=== PATIENT | female | born 1980 | race Caucasian/White ===

== ENCOUNTER 2018-01-15 12:32 | Emergency (ER) | payer OTHER ==
[2018-01-15 12:40] VITALS: BP 106/63
--- OUTSIDE RECORDS SUMMARY | 2018-01-15 12:40 | XMS REPORT ---
:1980 External Reference #:[id number] Author Organization [facility] Address [address] [place] [address] Phone [phone] Care Team Providers Name Role Phone ZoranSaranya SHIP'S CAPTAIN Primary Care Physician Unavailable Payers Type Date Identification Numbers Payment Provider Subscriber Commercial Effective: Policy Number: [id number] Cookartie Em Elisabeth Lila 2012 Healthcare-Man Med Expires: 2016 Group Name: [facility] [employer] PayID: [id number] [place] [address] Medigap Part B Effective: Policy Number: Sony BCSEYMOUR Barber 2016 [id number] Lila Expires: 2017 Group Name: [employer] [address] [address] PayID: [id number] [address] [place] [address] Medigap Part B Effective: Policy Number: Medicaid/Computer Silviano Barber 2017 [id number] Science Lila Expires: 2017 Group Name: 1 [address] PayID: [id number] [place] [address] Commercial Effective: Policy Number: [facility] Silviano Barber 2017 [id number] Med Lila Expires: 2017 PayID: [id number] [facility] [place] [address] Commercial Effective: Policy Number: [facility] Silviano Barber 2017 [id number] Medicaid Lila PayID: [id number] [address] [place] [address] Advance Directives Type Date Description Status Comment Other Directive 05/15/2014 Health Care Proxy Current and Verified Problems Date Description Provider Status Onset: 09/12/2017 Chronic back pain Saranya Meehan, HR PAYROLL COORDINATOR-C Active Onset: 01/07/2012 Alcohol dependence Sugey Christy M.D. Resolved Resolved: 09/12/2017 Onset: 01/07/2012 Insomnia Sugey Christy M.D. Resolved Resolved: 09/12/2017 Onset: 01/07/2012 Depressive disorder Sugey Christy M.D. Resolved Resolved: 09/12/2017 Family History Date Family Member(s) Problem(s) Comments Father Healthy Mother Depression Mother Irritable Bowel Syndrome Mother Cancer, Cervical Maternal Grandfather Alcoholism Social History Type Date Description Comments Marital Status Single Home Environment [place] Work Status Currently Working [employer] Cigarette Use Former Cigarette Smoker ETOH Use Denies alcohol use Recreational Drug Use Former Drug User Smoking Patient is a former smoker Daily Caffeine Does Not Consume Caffeine Exercise Type/Frequency Walks 4 times a week Allergies, Adverse Reactions, Alerts Date Description Reaction Status Severity Comments 01/09/2016 Morphine active dizziness 01/07/2012 NKDA inactive Medications Medication Date Status Form Strength Qnty SIG Indications Ordering Provider Zonisamide 01/06 Active Capsules 100mg 60cap 2 by G89.4 wnti R. s mouth Storm, before HR PAYROLL COORDINATOR-C bed Trazodone HCL 01/06 Active Tablets 100mg 60tab 2 by G47.00 nti R. s mouth Storm, every HR PAYROLL COORDINATOR-C night at bedtime for sleep Oxycodone HCL 01/06 Active Tablets 30mg 150ta 1 by G89.4 nt R. bs mouth Storm, every 4 HR PAYROLL COORDINATOR-C hours for pain, MDD 6 Lidocaine-Priloca 11/28 Active Cream 2.5-2.5% 25gm apply pea K64.9 Shawnti R. ine sized Storm, area 3 to HR PAYROLL COORDINATOR-C 4 times daily for pain Proctozone-HC 11/28 Active Cream 2.5% 30gm apply to K64.9 Shawnti R. /2017 hemorrhoi Storm, ds 3 - 4 HR PAYROLL COORDINATOR-C times daily if needed Oxycodone HCL ER 11/11 Active Tab ER 12H 20mg 30tab 1 by Saranya R. Abuse-Det s mouth Storm, before HR PAYROLL COORDINATOR-C bed for chronic pain Prednisone 11/10 Active Tablets 20mg 13tab 3 by S46.811A Danishai R s mouth Storm, every day HR PAYROLL COORDINATOR-C x 2days, 2 by mouth every day x 2 days, 1 by mouth every day x 2 days, 1/2 by mouth every day x 2 days Wellbutrin SR 11/10 Active Tablets ER 150mg 60tab take one R53.83 christianoi R 12HR s tablet by , mouth HR PAYROLL COORDINATOR-C twice a day Nicotine 09/20 Active Patches 14mg/24HR 28uni 1 patch christianoi R 24HR ts every , day, HR PAYROLL COORDINATOR-C remove after 24 hours an replace with a new patch, rotate sites Apri 09/14 Active Tablets 0.15-30mg 168ta 1 by Z30.9 Danishai R -mcg bs mouth , every HR PAYROLL COORDINATOR-C day, skip placebo pills and start a new pack Gentamicin 01/06 Active Solution 0.3% 5ml 2 drops H00.015 Saranya RPalomo in [facility], affected HR PAYROLL COORDINATOR-C eye four times a day for one week Zofran Odt 11/01 Active Tablets 4mg 30tab dissolve G89.4 Danishai R Dispers s one tab , in mouth HR PAYROLL COORDINATOR-C every 6-8 hours as needed nausea Thiamine HCL 09/09 Active Tablets 100mg 30tab Take One G90.09 Saranya R. s Tablet By , Mouth HR PAYROLL COORDINATOR-C Every Day Docusate Sodium 07/23 Active Capsules 100mg Joaquim HR PAYROLL COORDINATOR-C Folic Acid 07/23 Active Tablets 1mg 90tab 1 by Saranya Padilla. s mouth , daily HR PAYROLL COORDINATOR-C Multivitamins 25 Active Capsules Joaquim HR PAYROLL COORDINATOR-C 3ML Luer-Omar Tip 05/03 Active Misc 24G X 1" 30uni Use as Sugey Syringe 24G X 1" 3 ML ts directed Roxanna Christy, once per M.D. month to inject Vitamin B12 Cyanocobalamin 05/03 Active Solution 1000mcg/M 4unit inject Saranya Interiano L s one Storm, millilite HR PAYROLL COORDINATOR-C rs (cc) intramusc ularly once a week as directed Tizanidine HCL Active Tablets 2mg take 1 Unknown 0000 tablet by mouth three times a day Oxycodone HCL ER 11/10 Hx Tab ER 12H 40mg 60tab 1 by Saranya R. Abuse-Det s mouth Storm, - twice HR PAYROLL COORDINATOR-C 11/11 daily for chronic pain Oxycodone HCL 11/07 Hx Tablets 30mg 150ta 1 by GFidelina.Mando Beaver R. bs mouth Storm, - every 4 HR PAYROLL COORDINATOR-C 01/06 hours needed for breakthro ugh pain, mdd 6 Oxycodone HCL ER 10/27 Hx Tab ER 12H 30mg 60tab one by Saranya Interiano Abuse-Det s mouth Storm, - twice HR PAYROLL COORDINATOR-C 11/10 daily for chronic pain Oxycodone HCL 10/27 Hx Tablets 20mg 30tab 1/2 to 1 G89.4 Danishai R. s by mouth Storm, - every 6 HR PAYROLL COORDINATOR-C 11/07 hours needed for breakthro ugh pain Oxycodone HCL 10/07 Hx Tablets 30mg 90tab 1 by G89.4 Hubertnti R. s mouth Storm, - every 4 HR PAYROLL COORDINATOR-C 10/27 hours for chronic pain Trazodone HCL 10/07 Hx Tablets 50mg 60tab take 1 or G47.00 Saranya R. s 2 tablet Storm, - by mouth HR PAYROLL COORDINATOR-C 01/06 at bedtime if needed for sleep Zonisamide 09/26 Hx Capsules 100mg 30cap 1 by G89.4 Danishai R. s mouth Storm, - before HR PAYROLL COORDINATOR-C 01/06 Oxycodone HCL 09/26 Hx Tablets 20mg 90tab 1 by G89.4 Hubertntmartine R. s mouth Storm, - every 4 HR PAYROLL COORDINATOR-C 10/07 hours for pain Nortriptyline HCL 09/12 Hx Capsules 25mg 30cap 1 by G90.09 Ahsanwnti R. s mouth Storm, - every HR PAYROLL COORDINATOR-C 09/26 night at bedtime for neuropath ic pain Clindamycin 07/11 Hx Cream 2% 40gm one N76.0 Danishai R. applicato Storm, - r full HR PAYROLL COORDINATOR-C 07/21 into vaginal before bed for one week Nicotine 10/20 Hx Patches 14mg/24HR 21uni apply one Ahsanwnti R. 24HR ts patch Storm, - daily for HR PAYROLL COORDINATOR-C 07/11 3 weeks then decrease to 7mg patch Nicotine 10/20 Hx Patches 7mg/24HR 28uni apply one Ahsanwnti R. 24HR ts patch Storm, - daily HR PAYROLL COORDINATOR-C 09/20 Oxycodone HCL 04/14 Hx Tablets 30mg 180ta 1 by G89.4 Danishai R. bs mouth Storm, - every 4 HR PAYROLL COORDINATOR-C 09/26 hours needed for breakthro ugh pain, mdd 6 Oxycodone HCL ER 03/04 Hx Tab ER 12H 40mg 60tab 1 by G89.4 Hubertnti R. Abuse-Det s mouth Storm, - twice HR PAYROLL COORDINATOR-C 09/12 daily for chronic pain Oxycodone HCL 02/25 Hx Tablets 20mg 126ta 2 by G89.4 Hubertnti R. bs mouth Storm, - every 4 HR PAYROLL COORDINATOR-C 04/14 hours needed for pain Levaquin 11/01 Hx Tablets 750mg 7tabs 1 by J18.9 Ahsanwnadiai R. mouth Storm, - daily for HR PAYROLL COORDINATOR-C 11/11 7 days for pneumonia Oxycodone HCL ER 11/01 Hx Tab ER 12H 60mg 30tab 1 by G89.4 Danishai R. Abuse-Det s mouth Storm, - every HR PAYROLL COORDINATOR-C 02/25 for chronic pain Fluconazole 10/07 Hx Tablets 150mg 2tabs 1 by Saranya R. mouth Storm, - now, december HR PAYROLL COORDINATOR-C 07/11 repeat in 1 week if sx still present Doxycycline 10/07 Hx Capsules 100mg 20cap 1 by Saranya Interiano Hyclate /2016 s mouth Storm, - twice a HR PAYROLL COORDINATOR-C 11/01 day for 10 days Azithromycin 10/01 Hx Tablets 250mg 6tabs 2 by J18.9 Saranya Interiano mouth Storm, - today HR PAYROLL COORDINATOR-C 10/07 then 1 by mouth daily for 4 days Oxycodone HCL 10/01 Hx Tablets 10mg 100ta 1 or 2 po Saranya Interiano bs up to 6 Storm, - times HR PAYROLL COORDINATOR-C 10/11 daily for breakthro ugh pain Oxycodone HCL 09/10 Hx Tablets 20mg 180ta 1 by G89.4 Saranya Interiano bs mouth up Storm, - to 8 HR PAYROLL COORDINATOR-C 02/25 daily if needed for pain Oxycontin 08/26 Hx Tab ER 12H 80mg 30tab 1 by G90.09 Saranya Interiano Abuse-Det s mouth Storm, - before HR PAYROLL COORDINATOR-C 02/25 Oxycodone HCL 08/26 Hx Tablets 10mg 90tab 1 or 2 by G89.4 Saranya Interiano s mouth Storm, - q4hr as HR PAYROLL COORDINATOR-C 09/10 needed breakthro ugh pain Oxycontin 08/16 Hx Tab ER 12H 60mg 14tab 1 by G90.09 Saranya Interiano Abuse-Det s mouth Storm, - twice a HR PAYROLL COORDINATOR-C 08/26 day pain Oxycodone HCL 07/08 Hx Tablets 20mg 180ta 1 by Saranya Interiano bs mouth up Storm, - to 6 HR PAYROLL COORDINATOR-C 08/16 daily for chronic pain Oxycodone HCL 06/28 Hx Tablets 20mg 42tab 1 by Saranya Interiano s mouth up Storm, - to 6 HR PAYROLL COORDINATOR-C 07/05 daily if needed for pain Oxycodone HCL 06/21 Hx Tablets 20mg 42tab 1 by Saranya Interiano s mouth up Storm, - to 6 HR PAYROLL COORDINATOR-C 06/28 daily if needed for pain Fluconazole 06/17 Hx Tablets 150mg 2tabs 1 by Saranya Interiano mouth Storm, - now, december HR PAYROLL COORDINATOR-C 10/07 repeat 1 week if sx still present Oxycodone HCL 06/17 Hx Tablets 20mg 24tab 1 by Saranya R. s mouth up Storm, - to 6 HR PAYROLL COORDINATOR-C 06/21 daily if needed for pain Oxycodone HCL ER 06/15 Hx Tab ER 12H 20mg 28tab 1 by Saranya R. Abuse-Det s mouth Storm, - twice a HR PAYROLL COORDINATOR-C 07/08 day for chronic pain Oxycodone HCL 06/15 Hx Tablets 5mg 30tab 1 or 2 by G90. Saranya R. s mouth Storm, - three HR PAYROLL COORDINATOR-C 07/08 times a day as needed breakthro ugh pain Azithromycin 06/15 Hx Tablets 250mg 6tabs 2 by J18.9 Saranya R. mouth Storm, - today HR PAYROLL COORDINATOR-C 06/25 then 1 by mouth daily for 4 days Ondansetron 04/05 Hx Tablets 4mg 12tab dissolve christiano R. Dispers s 1 tablet Storm, - in mouth HR PAYROLL COORDINATOR-C 07/11 times a day as needed for nausea Duloxetine HCL 03/[address] 60mg 30cap 1 by G90.09 Sathish Part s mouth Nik - daily for III, HR PAYROLL COORDINATOR-C 04/02 ic pain Fluconazole 02/02 Hx Tablets 150mg 2tabs 1 by Saranya R. mouth Storm, - now, december HR PAYROLL COORDINATOR-C 06/17 repeat 1 week if sx still present Oxycodone HCL 02/01 Hx Tablets 20mg 180ta 1 by G90.09 Saranya R. bs mouth up Storm, - to 6 HR PAYROLL COORDINATOR-C 06/15 daily if needed for pain Oxycodone HCL 01/29 Hx Tablets 10mg 180ta 1 tablet G90. Hubertnti R. bs every 4 Storm, - hours if HR PAYROLL COORDINATOR-C 02/01 needed for pain Oxycodone HCL 01/08 Hx Tablets 10mg 180ta 1 tablet G90.09 Shawnti R. bs every 4 Storm, - hours if HR PAYROLL COORDINATOR-C 01/29 needed for pain Morphine Sulfate 01/04 Hx Tablets ER 30mg 30tab 1 po bid G90. Shawnti R. ER s for Storm, - chronic HR PAYROLL COORDINATOR-C 01/08 pain Apri 01/04 Hx Tablets 0.15-30mg 168ta 1 by Z30.9 Ahsanwnti R. -mcg bs mouth Storm, - every day HR PAYROLL COORDINATOR-C 07/11 Morphine Sulfate 12/28 Hx Tablets ER 15mg 30tab 1 po bid Shawnti R. ER s for Storm, - chronic HR PAYROLL COORDINATOR-C 01/04 pain Gabapentin 12/28 Hx Tablets 600mg 2 po tid G90. Ahsanwnti R. Storm, - HR PAYROLL COORDINATOR-C 04/02 Oxycontin 12/22 Hx Tab ER 12H 10mg 60tab 1 by G90. Ahsanwnti R. Abuse-Det s mouth Storm, - twice a HR PAYROLL COORDINATOR-C 01/04 day for chronic pain Nortriptyline HCL 12/22 Hx Capsules 50mg 180ca 2 by G47.00 wnti R. ps mouth Storm, - every HR PAYROLL COORDINATOR-C 04/26 night at bedtime for pain Hydroxyzine HCL 12/22 Hx Tablets 10mg 30tab take one F43.9 Shawnti R. s tablet by , - mouth HR PAYROLL COORDINATOR-C 06/15 times a day as needed for anxiety Oxycodone HCL 12/22 Hx Tablets 5mg 30tab 1 or 2 by G90. Shawnti R. s mouth Storm, - every 6 HR PAYROLL COORDINATOR-C 01/08 hours needed for breakthro ugh pain Oxycodone HCL 11/27 Hx Tablets 10mg 120ta 1 tablet G90.wnti R. bs every 6 Storm, - hours for HR PAYROLL COORDINATOR-C 12/22 pain Gabapentin 11/06 Hx Capsules 300mg 270ca 3 by G90. Shawnti R. ps mouth Storm, - three HR PAYROLL COORDINATOR-C 12/28 times daily for nerve pain Nortriptyline HCL 11/06 Hx Capsules 25mg 30cap 1 by G47.00 Danisha R. s mouth Storm, - every HR PAYROLL COORDINATOR-C 12/22 night at bedtime for insomnia and pain Ergocalciferol 10/30 Hx Capsules [id number] 8caps 1 by mouth Storm, - twice HR PAYROLL COORDINATOR-C 04/26 weekly for one month Oxycodone HCL Hx Tablets 5mg 120ta 1 by nadia bs mouth Storm, - every 4 HR PAYROLL COORDINATOR-C 11/27 hours if needed for pain Lyrica 10/24 Hx Capsules 150mg 60cap take one G90.nadia s capsule Storm, - by mouth HR PAYROLL COORDINATOR-C 11/06 twice a day; maximum daily dose=2 Gabapentin 09/09 Hx Capsules 300mg 180ca 2 by G90.09 ps mouth Storm, - three HR PAYROLL COORDINATOR-C 10/24 times daily for nerve pain Oxycodone HCL 09/09 Hx Tablets 5mg 60tab 1 by s mouth Storm, - every 4 HR PAYROLL COORDINATOR-C hours needed for pain Oxycodone HCL 07/23 Hx Tablets 10mg 30tab 1 tablets Saranya RPalomo s every 6 Storm, - hours as HR PAYROLL COORDINATOR-C 09/09 needed for pain Quetiapine 07/23 Hx Tablets 25mg 1/2 tab Joselyn po tid Joaquim, - prn HR PAYROLL COORDINATOR-C 12/22 Xifaxan 07/23 Hx Tablets 550mg 60tab 1 by s mouth Joaquim, - twice a HR PAYROLL COORDINATOR-C 07/26 day for days Senna Laxative 07/23 Hx Tablets 8.6mg Joaquim, - HR PAYROLL COORDINATOR-C 10/10 Miralax 07/23 Hx Packet [id number] K72.91 Joaquim, - HR PAYROLL COORDINATOR-C 10/10 Fluoxetine HCL 04/04 Hx Capsules 10mg 30cap 1 by 308.3 Saranya R s mouth Storm, - every HR PAYROLL COORDINATOR-C 07/23 Chlordiazepoxide 01/07 Hx Capsules 10mg 120ca [facility] ps mouth , - every 6 HR PAYROLL COORDINATOR-C 07/23 hours needed for anxiety Clonidine HCL 01/07 Hx Tablets 0.1mg 60tab 1 by 303.90 Shawnti R. /2014 s mouth Storm, - three HR PAYROLL COORDINATOR-C 07/23 times a day as needed for anxiety and shakes Lorazepam 11/15 Hx Tablets 1mg 60six 08/30 or 1 303.90 Shawnti R. /2014 ty by mouth Zoran, - q6hr as HR PAYROLL COORDINATOR-C 11/19 needed Fluconazole 11/15 Hx Tablets 200mg 2tabs 1 po now, 616.10 Shawnti R. repeat in Storm, - one week HR PAYROLL COORDINATOR-C 07/23 Fluconazole 05/17 Hx Tablets 150mg 2tabs 1 tablet 1 by Joaquim, - mouth now HR PAYROLL COORDINATOR-C 11/15 Ciprofloxacin HCL 05/15 Hx Tablets 500mg 6tabs take 1 599.0 tablet by Joaquim, - mouth HR PAYROLL COORDINATOR-C 01/07 twice a day x 3 days Clonazepam 01/22 Hx Tablets 1mg 20twe 08/30 or 1 303.90 Joselyn nty by mouth Joaquim, - twice a HR PAYROLL COORDINATOR-C 11/15 day needed anxiety Citalopram 01/22 Hx Tablets 20mg 90tab 1 by 303.90 [facility]ide /2013 s mouth [facility], - every day HR PAYROLL COORDINATOR-C 07/23 for anxiety Nystatin/Triamcin 08/08 Hx Cream 599101-5. 60gm apply to Sugey 1Unit/GM- affected Roxanna Christy, - % area bid M.D. 07/23 Sprintec 28 08/06 Hx Tablets 0.25-35mg 84tab take one Sugey -mcg s tablet by Roxanna Christy, - mouth M.D. 07/23 once daily as directed Baclofen 06/28 Hx Tablets 10mg 90tab 1 po tid 728.85 Sugey s Roxanna Christy, - M.D. 07/23 Diflucan 06/15 Hx Tablets 150mg 1tabs take 1 Sugey tablet Roxanna Christy, - now, december.D. 06/20 repeat dose in 1 week if not cleared Dicyclomine HCL 05/17 Hx Tablets 20mg 90tab take one 787.91 Sugey s tablet by Roxanna Christy, - mouth M.D. 07/23 every hours as needed Tizanidine HCL 05/17 Hx Tablets 4mg 40tab take one 724.5 Sugey s po every Roxanna Christy, - 6 hours M.D. 06/04 as needed for pain Vitamin B-12 02/14 Hx Tablets Sub 1000mcg 60tab 1 po bid Sugey s Roxanna Christy, - M.D. 05/03 Amitriptyline HCL 02/09 Hx Tablets 25mg 30tab take one 311 Sugey s po at hs Roxanna Christy, - M.D. 07/23 Famotidine 02/09 Hx Tablets 40mg 60tab Take one 078.12 Sugey s tablet po Roxanna Christy, - bid M.D. 06/04 Diflucan 01/28 Hx Tablets 150mg 1tabs take 1 tablet Joaquim, - nowDecember HR PAYROLL COORDINATOR-C 06/04 repeat dose in 1 week if not cleared Mirtazapine 25 Hx Tablets 15mg 30tab take one 780.52 Sugey s half to Roxanna Christy, - one M.D. 05/17 tablet po /2012 at hs Nasonex 01/20 Hx Suspension 50mcg/Act 17gm 1-2 477.9 Sugey sprays Roxanna Christy, - intranasa M.DPalomo 07/23 l Mirtazapine 11 Hx Tablets 15mg 60tab take one 780.52 Sugey Dispers s or two Roxanna Christy, - tablets M.D. 01/20 po at hs Clonidine HCL 01/06 Hx Tablets 0.1mg 60tab 1 po bid 303.90 Sugey s or tid Amada Lopes M.D. 06/04 anxiety and depressio n Naltrexone HCL 01/06 Hx Tablets 50mg 30tab 1 po qd 303.90 Amada Aguayo M.D. 06/04 Medications Administered in Office Medication Date Status Form Strength Qnty SIG Indications Ordering Provider Vitamin B-12 Administered Injection Shawnti R. Injection-To 018 Storm, 1000mcg HR PAYROLL COORDINATOR-C Vitamin B-12 Administered Injection Shawnti R. Injection-To 017 Storm, 1000mcg HR PAYROLL COORDINATOR-C Vitamin B-12 Administered Injection Shawnti R. Injection-To 017 Storm, 1000mcg HR PAYROLL COORDINATOR-C Vitamin B-12 Administered Injection Shawnti R. Injection-To 015 Storm, 1000mcg HR PAYROLL COORDINATOR-C Vitamin B-12 Administered Injection Shawnti R. Injection-To 014 Storm, 1000mcg HR PAYROLL COORDINATOR-C Vitamin B-12 Administered Injection Lab and Injection-To 013 Office 1000mcg Services Immunizations CPT Code Status Date Vaccine Lot # [id number] Given 03/04/2017 Tdap (Adacel) [id number] Given 08/06/2013 Influenza Vaccine-Preservative Free 3 Yrs And Above [id number] Refused 10/21/2017 Influenza Virus Vaccine, Quadrivalent, 3 Yr > Quad, Preserv Free [id number] Refused 09/12/2017 Menb-Serogroup B Meningitis [id number] Refused 03/28/2017 Influenza Virus Vaccine, Quadrivalent, 3 Yr > Quad, Preserv Free Vital Signs Date Vital Result Comment 01/06/2018 Weight 126.00 lb Weight in kg's 57.154 BP Systolic 100 mmHg BP Diastolic 60 mmHg Heart Rate 78 /min Body Temperature 98.3 F Respiratory Rate 14 /min 11/28/2017 Weight 131.00 lb Weight in kg's 59.422 BP Systolic 110 mmHg BP Diastolic 64 mmHg Heart Rate 78 /min Body Temperature 97.0 F 11/10/2017 Weight 132.00 lb Weight in kg's 59.875 BP Systolic 98 mmHg BP Diastolic 70 mmHg Heart Rate 79 /min Body Temperature 98.9 F Respiratory Rate 18 /min O2 % BldC Oximetry 99 % 10/21/2017 Weight 132.00 lb Weight in kg's 59.875 BP Systolic 120 mmHg BP Diastolic 70 mmHg Heart Rate 76 /min Body Temperature 97.9 F 10/07/2017 Weight 134.00 lb Weight in kg's 60.782 BP Systolic 110 mmHg BP Diastolic 62 mmHg Heart Rate 88 /min Body Temperature 97.6 F Respiratory Rate 20 /min 09/26/2017 Weight 135.00 lb Weight in kg's 61.236 BP Systolic 110 mmHg BP Diastolic 68 mmHg Heart Rate 80 /min Body Temperature 98.1 F Respiratory Rate 16 /min O2 % BldC Oximetry 100 % 09/12/2017 Weight 135.00 lb Weight in kg's 61.236 BP Systolic 120 mmHg BP Diastolic 70 mmHg Heart Rate 80 /min Body Temperature 98.2 F 08/11/2017 Weight 135.00 lb Weight in kg's 61.236 BP Systolic 104 mmHg BP Diastolic 74 mmHg Heart Rate 103 /min Body Temperature 97.0 F Respiratory Rate 16 /min O2 % BldC Oximetry 98 % 08/09/2017 Weight 137.00 lb Weight in kg's 62.143 BP Systolic 90 mmHg BP Diastolic 60 mmHg Heart Rate 82 /min Body Temperature 98.4 F Respiratory Rate 16 /min Height 67.5 inches 5'7.50" BMI (Body Mass Index) 21.1 kg/m2 O2 % BldC Oximetry 98 % 07/11/2017 Weight 135.00 lb Weight in kg's 61.236 BP Systolic 112 mmHg BP Diastolic 70 mmHg Heart Rate 72 /min Respiratory Rate 14 /min O2 % BldC Oximetry 98 % 06/17/2017 Weight 134.00 lb Weight in kg's 60.782 BP Systolic 120 mmHg BP Diastolic 80 mmHg Heart Rate 84 /min Body Temperature 98.4 F Respiratory Rate 14 /min 05/13/2017 Weight 131.00 lb Weight in kg's 59.422 BP Systolic 130 mmHg BP Diastolic 70 mmHg Heart Rate 96 /min Body Temperature 97.8 F Respiratory Rate 14 /min 04/14/2017 Weight 126.00 lb Weight in kg's 57.154 BP Systolic 110 mmHg BP Diastolic 70 mmHg Heart Rate 100 /min Body Temperature 97.9 F Respiratory Rate 14 /min 03/28/2017 Weight 131.00 lb Weight in kg's 59.422 BP Systolic 142 mmHg BP Diastolic 86 mmHg Heart Rate 84 /min Body Temperature 98.9 F Respiratory Rate 16 /min O2 % BldC Oximetry 99 % 03/04/2017 Weight 128.00 lb Weight in kg's 58.061 BP Systolic 120 mmHg BP Diastolic 80 mmHg Heart Rate 80 /min Body Temperature 98.8 F Respiratory Rate 12 /min 01/06/2017 Weight 128.00 lb Weight in kg's 58.061 BP Systolic 124 mmHg BP Diastolic 72 mmHg Heart Rate 80 /min Body Temperature 99.4 F Respiratory Rate 20 /min 11/01/2016 BP Systolic 140 mmHg BP Diastolic 98 mmHg Heart Rate 100 /min Body Temperature 98.1 F O2 % BldC Oximetry 98 % 10/01/2016 Weight 129.00 lb Weight in kg's 58.514 BP Systolic 124 mmHg BP Diastolic 66 mmHg Heart Rate 79 /min Body Temperature 9.9 F Respiratory Rate 16 /min Last Menstrual Period [id number] O2 % BldC Oximetry 98 % 09/10/2016 Weight 132.00 lb Weight in kg's 59.875 BP Systolic 100 mmHg BP Diastolic 60 mmHg Heart Rate 72 /min Body Temperature 98.3 F Respiratory Rate 12 /min Last Menstrual Period [id number] 08/26/2016 Weight 131.00 lb Weight in kg's 59.422 BP Systolic 100 mmHg BP Diastolic 70 mmHg Heart Rate 80 /min Body Temperature 97.5 F Respiratory Rate 12 /min 08/16/2016 Weight 131.00 lb Weight in kg's 59.422 BP Systolic 108 mmHg BP Diastolic 70 mmHg Heart Rate 94 /min Body Temperature 96.9 F Respiratory Rate 16 /min O2 % BldC Oximetry 99 % 07/12/2016 Weight 129.00 lb Weight in kg's 58.514 BP Systolic 128 mmHg BP Diastolic 66 mmHg Body Temperature 97.0 F Respiratory Rate 16 /min 06/15/2016 Weight 128.00 lb Weight in kg's 58.061 BP Systolic 114 mmHg BP Diastolic 64 mmHg Heart Rate 80 /min Body Temperature 97.1 F Respiratory Rate 17 /min O2 % BldC Oximetry 99 % 04/26/2016 Weight 126.00 lb Weight in kg's 57.154 BP Systolic 120 mmHg BP Diastolic 84 mmHg Heart Rate 88 /min 04/02/2016 Weight 131.00 lb Weight in kg's 59.422 BP Systolic 130 mmHg BP Diastolic 80 mmHg Heart Rate 103 /min Body Temperature 98.8 F Respiratory Rate 16 /min 03/19/2016 Weight 132.00 lb Weight in kg's 59.875 BP Systolic 100 mmHg BP Diastolic 70 mmHg Heart Rate 97 /min Body Temperature 98.6 F Respiratory Rate 20 /min 02/23/2016 Weight 135.00 lb Weight in kg's 61.236 BP Systolic 110 mmHg BP Diastolic 70 mmHg Heart Rate 80 /min 01/12/2016 Weight 126.00 lb Weight in kg's 57.154 BP Systolic 103 mmHg BP Diastolic 70 mmHg Heart Rate 88 /min 01/05/2016 Weight 129.00 lb Weight in kg's 58.514 BP Systolic 106 mmHg BP Diastolic 72 mmHg Heart Rate 103 /min Body Temperature 97.8 F O2 % BldC Oximetry 99 % 12/23/2015 Weight 125.00 lb Weight in kg's 56.700 BP Systolic 100 mmHg BP Diastolic 70 mmHg Heart Rate 89 /min 11/28/2015 Weight 125.00 lb Weight in kg's 56.700 BP Systolic 88 mmHg BP Diastolic 60 mmHg Heart Rate 92 /min 11/07/2015 Weight 128.00 lb Weight in kg's 58.061 BP Systolic 97 mmHg BP Diastolic 54 mmHg Heart Rate 68 /min 10/24/2015 Weight 124.00 lb Weight in kg's 56.246 BP Systolic 100 mmHg BP Diastolic 60 mmHg Heart Rate 75 /min Body Temperature 99.1 F O2 % BldC Oximetry 92 % 10/10/2015 Weight 126.00 lb Weight in kg's 57.154 BP Systolic 118 mmHg BP Diastolic 60 mmHg Heart Rate 77 /min Body Temperature 98.8 F Height 67.5 inches 5'7.50" BMI (Body Mass Index) 19.4 kg/m2 O2 % BldC Oximetry 98 % 09/09/2015 Weight 127.00 lb Weight in kg's 57.607 BP Systolic 94 mmHg BP Diastolic 62 mmHg Heart Rate 72 /min Body Temperature 97.9 F 08/01/2015 Weight 128.00 lb Weight in kg's 58.061 BP Systolic 110 mmHg BP Diastolic 64 mmHg Heart Rate 90 /min 07/23/2015 Weight 128.75 lb Weight in kg's 58.401 BP Systolic 102 mmHg BP Diastolic 68 mmHg Heart Rate 92 /min Body Temperature 97.9 F 04/04/2015 Weight 132.00 lb Weight in kg's 59.875 BP Systolic 120 mmHg BP Diastolic 80 mmHg Heart Rate 72 /min 01/07/2015 Weight 139.00 lb Weight in kg's 63.050 BP Systolic 114 mmHg BP Diastolic 76 mmHg Heart Rate 92 /min 11/15/2014 Weight 140.00 lb Weight in kg's 63.504 BP Systolic 118 mmHg BP Diastolic 78 mmHg Heart Rate 80 /min 05/15/2014 Weight 140.00 lb Weight in kg's 63.504 BP Systolic 130 mmHg BP Diastolic 82 mmHg Heart Rate 96 /min Body Temperature 97.5 F 01/22/2014 Weight 147.00 lb Weight in kg's 66.679 BP Systolic 114 mmHg BP Diastolic 70 mmHg Heart Rate 96 /min Body Temperature 98.7 F 08/06/2013 Weight 158.00 lb Weight in kg's 71.669 BP Systolic 118 mmHg BP Diastolic 70 mmHg Heart Rate 88 /min Height 68 inches 5'8" BMI (Body Mass Index) 24.0 kg/m2 Last Menstrual Period [id number] Oral Contraceptive 06/28/2013 Weight 148.00 lb Weight in kg's 67.133 BP Systolic 110 mmHg BP Diastolic 74 mmHg Heart Rate 88 /min Body Temperature 97.0 F O2 % BldC Oximetry 98 % 06/04/2013 Weight 148.00 lb Weight in kg's 67.133 BP Systolic 120 mmHg BP Diastolic 78 mmHg Heart Rate 84 /min Body Temperature 98.4 F Height 67.5 inches 5'7.50" BMI (Body Mass Index) 22.8 kg/m2 05/17/2013 Weight 147.00 lb Weight in kg's 66.679 BP Systolic 108 mmHg BP Diastolic 64 mmHg Heart Rate 92 /min Body Temperature 98.6 F 02/09/2013 Weight 135.00 lb Weight in kg's 61.236 BP Systolic 134 mmHg BP Diastolic 76 mmHg Heart Rate 91 /min Body Temperature 98.9 F Height 67.5 inches 5'7.50" BMI (Body Mass Index) 20.8 kg/m2 O2 % BldC Oximetry 99 % 04/17/2012 Weight 161.00 lb Weight in kg's 73.030 BP Systolic 104 mmHg BP Diastolic 70 mmHg Heart Rate 76 /min 03/29/2012 Weight 160.00 lb Weight in kg's 72.576 BP Systolic 100 mmHg BP Diastolic 64 mmHg Heart Rate 68 /min 01/21/2012 Weight 150.00 lb Weight in kg's 68.040 BP Systolic 100 mmHg BP Diastolic 68 mmHg Heart Rate 76 /min 01/07/2012 Weight 150.00 lb Weight in kg's 68.040 BP Systolic 134 mmHg BP Diastolic 80 mmHg Heart Rate 72 /min Height 68.5 inches 5'8.50" BMI (Body Mass Index) 22.5 kg/m2 Results Test Date Test Result H/L Range Note Laboratory test finding 08/11/2017 Strep Screen neg Neg Flu Test A, B, Or A & 08/11/2017 Influenza A Antigen neg B,Binaxn Influenza B Antigen neg Laboratory test 07/11/2017 Gardnerella/Yeast: Vaginal SEE RESULT BELOW 1 finding Dna GC/Chlamydia 07/11/2017 Chlamydia trachomatis Rna Negative Negative Amplified Rna Neisseria gonorrhoeae (GC) Rna Negative Negative Laboratory test finding 07/11/2017 Trichomonas Vaginalis Rna Negative Negative 2 Urine DIP 07/11/2017 Leukocytes NEG Neg Urine Nitrites NEG Neg Urobilinogen NORM Norm Total Protein, Urine NEG Neg Urine pH 6 5-6 Urine Blood NEG Neg Specific [place] 1.020 1.01-1.02 Urine Ketones NEG Neg Urine Bilirubin NEG Neg Urine Glucose NORM Norm Urine Drug Abuse 20 05/13/2017 Misc <pending> Laboratory test finding 03/28/2017 Vitamin D Total 48.4 ng/mL 30-50 3 25(Oh) Lyme Western Blot 03/28/2017 Lyme Disease IgG Ab Negative Negative WB Lyme Disease IgG Bands Present No bands detecte <SEE NOTE> kDa 4 Lyme Disease IgM Ab WB Negative Negative Lyme Disease IgM Bands Present No bands detecte <SEE NOTE> kDa 5 Lyme Disease Interpretation See Comment 6 Drug Abuse 20 Urine 01/06/2017 Urine Amphetamine Negative ng/mL 7 Urine Barbiturates Negative ng/mL 8 Urine Benzodiazepines Negative ng/mL 9 Urine Cocaine Negative ng/mL 10 Urine Phencyclidine Negative ng/mL Cutoff: 25 Urine Tetrahydrocannabinol Negative ng/mL Cutoff: 50 11 Creatinine 85.0 mg/dL Specific [place] 1.013 pH 6.7 Oxidants Negative 12 Adulterants Comment Normal Codeine, Ur Not Detected ng/mL Cutoff: 25 13 Zpltnlx-3-sxrp-glucuronide, Ur Not Detected ng/mL 14 Morphine, Ur Not Detected ng/mL Cutoff: 25 15 Ayyvglou-6-kfpw-glucuronide, U Not Detected ng/mL 16 6-monoacetylmorphine, Ur Not Detected ng/mL Cutoff: 25 17 Hydrocodone, Ur Not Detected ng/mL Cutoff: 25 18 Norhydrocodone, Ur Not Detected ng/mL Cutoff: 25 19 Dihydrocodeine, Ur Not Detected ng/mL Cutoff: 25 20 Hydromorphone, Ur Not Detected ng/mL Cutoff: 25 21 Sapxkgbckgiii1xldpohuorqgyzie Not Detected ng/mL 22 Oxycodone, Ur Present ng/mL Cutoff: 25 23 Noroxycodone, Ur Present ng/mL Cutoff: 25 24 Oxymorphone, Ur Present ng/mL Cutoff: 25 25 Vrpdoqmqadu-9-vzvi-glucuronide Present ng/mL 26 Noroxymorphone, Ur Present ng/mL Cutoff: 25 27 Fentanyl, Ur Not Detected ng/mL Cutoff: 2 28 Norfentanyl, Ur Not Detected ng/mL Cutoff: 2 29 Meperidine, Ur Not Detected ng/mL Cutoff: 25 30 Normeperidine, Ur Not Detected ng/mL Cutoff: 25 31 Naloxone, Ur Not Detected ng/mL Cutoff: 25 32 Zicxsvaj-4-jwrt-glucuronide, U Not Detected ng/mL 33 Methadone, Ur Not Detected ng/mL Cutoff: 25 34 Eddp, Ur Not Detected ng/mL Cutoff: 25 35 Propoxyphene, Ur Not Detected ng/mL Cutoff: 25 36 Norpropoxyphene, Ur Not Detected ng/mL Cutoff: 25 37 Tramadol, Ur Not Detected ng/mL Cutoff: 25 38 O-desmethyltramadol, Ur Not Detected ng/mL Cutoff: 25 39 Tapentadol, Ur Not Detected ng/mL Cutoff: 25 40 N-desmethyltapentadol, Ur Not Detected ng/mL Cutoff: 50 41 Jpgfzdrdlf-ldpd-sphrjgcgrhf, U Not Detected ng/mL 42 Buprenorphine, Ur Not Detected ng/mL Cutoff: 5 43 Norbuprenorphine, Ur Not Detected ng/mL Cutoff: 5 44 Norbuprenorphine glucuronide Not Detected ng/mL Cutoff: 20 45 Opioid Interpretation See Comment 46 GC/Chlamydia Amplified Rna 09/10/2016 Chlamydia trachomatis Rna Negative Negative Neisseria gonorrhoeae (GC) Rna Negative Negative Laboratory test 09/10/2016 Gardnerella/Yeast: Vaginal SEE RESULT BELOW 47 finding Dna Trichomonas Vaginalis Rna Negative Negative 48 Urine DIP 09/10/2016 Leukocytes neg Neg Urine Nitrites neg Neg Urobilinogen norm Norm Total Protein, Urine trace Neg Urine pH 8 High 5-6 Urine Blood neg Neg Specific [place] 1.010 1.01-1.02 Urine Ketones neg Neg Urine Bilirubin neg Neg Urine Glucose norm Norm Laboratory test finding 09/10/2016 HCG DIP Test neg Neg CBC Auto Diff 01/08/2016 White Blood Count 6.6 10^3/uL 3.5-10.8 Red Blood Count 4.02 10^6/uL 4.0-5.4 Hemoglobin 12.1 g/dL 12.0-16.0 Hematocrit 37 % 35-47 Mean Corpuscular Volume 91 fL 80-97 Mean Corpuscular Hemoglobin 30 pg 27-31 Mean Corpuscular HGB Conc 33 g/dL 31-36 Red Cell Distribution Width 14 % 10.5-15 Platelet Count 226 10^3/uL 150-450 Mean Platelet Volume 9 um3 7.4-10.4 Abs Neutrophils 3.8 10^3/uL 1.5-7.7 Abs Lymphocytes 2.1 10^3/uL 1.0-4.8 Abs Monocytes 0.6 10^3/uL 0-0.8 Abs Eosinophils 0.1 10^3/uL 0-0.6 Abs Basophils 0 10^3/uL 0-0.2 Abs Nucleated RBC 0.01 10^3/uL Granulocyte % 57.9 % 38-83 Lymphocyte % 31.9 % 25-47 Monocyte % 8.6 % 1-9 Eosinophil % 1.0 % 0-6 Basophil % 0.6 % 0-2 Nucleated Red Blood Cells % 0.1 Comp Metabolic Panel 01/08/2016 Sodium 134 mmol/L 133-145 Potassium 3.6 mmol/L 3.5-5.0 Chloride 101 mmol/L 101-111 Co2 Carbon Dioxide 28 mmol/L 22-32 Anion Gap 5 mmol/L 2-11 Glucose 106 mg/dL High 70-100 Blood Urea Nitrogen 11 mg/dL 6-24 Creatinine 0.80 mg/dL 0.51-0.95 BUN/Creatinine Ratio 13.8 8-20 Calcium 9.2 mg/dL 8.6-10.3 Total Protein 6.7 g/dL 6.4-8.9 Albumin 4.0 g/dL 3.2-5.2 Globulin 2.7 g/dL 2-4 Albumin/Globulin Ratio 1.5 1-3 Total Bilirubin 0.60 mg/dL 0.2-1.0 Alkaline Phosphatase 51 U/L 34-104 Alt 17 U/L 7-52 Ast 22 U/L 13-39 Egfr Non- 82.1 >60 Egfr 105.6 >60 49 Laboratory test finding 01/08/2016 Lipase 11 U/L 11.0-82.0 C Reactive Protein 5.22 mg/L High < 5.00 50 HCG < 0.60 mIU/mL 51 Laboratory test 01/08/2016 Urine Culture SEE RESULT BELOW 52, 53 finding Laboratory test 01/05/2016 HCG DIP Test NEG Neg finding Laboratory test 01/05/2016 Urine Culture And SEE RESULT BELOW 54 finding Sensitivities Urine DIP 01/05/2016 Leukocytes NEG Neg Urine Nitrites NEG Neg Urobilinogen NORM Norm Total Protein, Urine NEG Neg Urine pH 5 5-6 Urine Blood NEG Neg Specific [place] 1.02 1.01-1.02 Urine Ketones NEG Neg Urine Bilirubin NEG Neg Urine Glucose NORM Norm Laboratory test finding 10/24/2015 Vitamin D, 1,25 Dihydroxy 8.7 pg/mL 18 -78 55 Vitamin B12 839 pg/mL 180-914 56 Arthritis Panel 10/24/2015 Uric Acid 4.8 mg/dL 2.3-6.6 Rheumatoid Factor <15 IU/mL <15 57 Sydnie (Anti-Nuclear AB) Screen Negative Negative Laboratory test finding 10/24/2015 C Reactive Protein 3.47 mg/L < 5.00 58 Cyclic Citrullinated Pep Igg <15.6 U 59 CBC Auto Diff 10/24/2015 White Blood Count 5.6 10^3/uL 3.5-10.8 Red Blood Count 4.09 10^6/uL 4.0-5.4 Hemoglobin 12.5 g/dL 12.0-16.0 Hematocrit 37 % 35-47 Mean Corpuscular Volume 91 fL 80-97 Mean Corpuscular Hemoglobin 31 pg 27-31 Mean Corpuscular HGB Conc 34 g/dL 31-36 Red Cell Distribution Width 13 % 10.5-15 Platelet Count 240 10^3/uL 150-450 Mean Platelet Volume 9 um3 7.4-10.4 Abs Neutrophils 2.9 10^3/uL 1.5-7.7 Abs Lymphocytes 2.1 10^3/uL 1.0-4.8 Abs Monocytes 0.5 10^3/uL 0-0.8 Abs Eosinophils 0.1 10^3/uL 0-0.6 Abs Basophils 0 10^3/uL 0-0.2 Abs Nucleated RBC 0 10^3/uL Granulocyte % 51.7 % 38-83 Lymphocyte % 38.2 % 25-47 Monocyte % 8.5 % 1-9 Eosinophil % 1.0 % 0-6 Basophil % 0.6 % 0-2 Nucleated Red Blood Cells % 0.1 Lyme Western Blot 10/24/2015 Lyme Disease IgG Ab WB Negative Negative Lyme Disease IgG Bands Present No bands detecte <SEE NOTE> kDa 60 Lyme Disease IgM Ab WB Negative Negative Lyme Disease IgM Bands Present No bands detecte <SEE NOTE> kDa 61 Lyme Disease Interpretation See Comment 62 Laboratory test finding 10/24/2015 Erythrocyte Sed Rate 17 mm/Hr High 0- 14 TSH (Thyroid Stim Horm) 1.68 ?IU/mL 0.34-5.60 Laboratory test finding 10/13/2015 Alcohol < 10 mg/dL <10 Drug Abuse 20 Urine 10/13/2015 Urine Amphetamine Negative ng/mL 63 Urine Barbiturates Negative ng/mL 64 Urine Benzodiazepines Negative ng/mL 65 Urine Cocaine Negative ng/mL 66 Urine Methadone Negative ng/mL 67 Urine Opiates Negative ng/mL 68 Urine Phencyclidine Negative ng/mL Cutoff: 25 Urine Tetrahydrocannabinol Negative ng/mL Cutoff: 20 69 Urine Oxycodone Presumptive Posi <SEE NOTE> ng/mL 70 Oxycodone, Urine Quantitation 10/13/2015 Oxycodone 2890 ng/mL 71 Oxymorphone 622 ng/mL 72 Oxycodone Interpretation Positive. 73 Laboratory test finding 10/10/2015 Cytology SEE RESULT BELOW 74 HPV Rna Ww/Reflex Genotype POSITIVE Negative 75 HPV 16, 18/45 Genotype 10/10/2015 HPV 16 Genotype Negative Negative HPV 18/45 Genotype Negative Negative CBC Auto Diff 10/10/2015 White Blood Count 5.7 10^3/uL 3.5-10.8 Red Blood Count 4.16 10^6/uL 4.0-5.4 Hemoglobin 13.0 g/dL 12.0-16.0 Hematocrit 39 % 35-47 Mean Corpuscular Volume 93 fL 80-97 Mean Corpuscular Hemoglobin 31 pg 27-31 Mean Corpuscular HGB Conc 34 g/dL 31-36 Red Cell Distribution Width 13 % 10.5-15 Platelet Count 230 10^3/uL 150-450 Mean Platelet Volume 10 um3 7.4-10.4 Abs Neutrophils 2.7 10^3/uL 1.5-7.7 Abs Lymphocytes 2.4 10^3/uL 1.0-4.8 Abs Monocytes 0.6 10^3/uL 0-0.8 Abs Eosinophils 0.1 10^3/uL 0-0.6 Abs Basophils 0 10^3/uL 0-0.2 Abs Nucleated RBC 0 10^3/uL Granulocyte % 47.1 % 38-83 Lymphocyte % 41.5 % 25-47 Monocyte % 9.6 % High 1-9 Eosinophil % 1.3 % 0-6 Basophil % 0.5 % 0-2 Nucleated Red Blood Cells % 0 Comp Metabolic Panel 10/10/2015 Sodium 140 mmol/L 133-145 Potassium 4.0 mmol/L 3.5-5.0 Chloride 103 mmol/L 101-111 Co2 Carbon Dioxide 32 mmol/L 22-32 Anion Gap 5 mmol/L 2-11 Glucose 76 mg/dL 70-100 Blood Urea Nitrogen 8 mg/dL 6-24 Creatinine 0.81 mg/dL 0.51-0.95 BUN/Creatinine Ratio 9.9 8-20 Calcium 9.3 mg/dL 8.6-10.3 Total Protein 6.9 g/dL 6.4-8.9 Albumin 4.2 g/dL 3.2-5.2 Globulin 2.7 g/dL 2-4 Albumin/Globulin Ratio 1.6 1-3 Total Bilirubin 0.30 mg/dL 0.2-1.0 Alkaline Phosphatase 50 U/L 34-104 Alt 12 U/L 7-52 Ast 15 U/L 13-39 Egfr Non- 81.4 >60 Egfr 104.7 >60 76 Lipid Profile (Trig/Chol/HDL) 10/10/2015 Triglycerides 154 mg/dL 77 Cholesterol 141 mg/dL 78 HDL Cholesterol 34.1 mg/dL 79 LDL Cholesterol 76 mg/dL 80 Laboratory test finding 10/10/2015 TSH (Thyroid Stim Horm) 1.65 ?IU/mL 0.34-5.60 Liver Function Panel 07/23/2015 Total Protein 7.2 g/dL 6.4-8.9 81 Albumin 3.9 g/dL 3.2-5.2 81 Globulin 3.3 g/dL 2-4 81 Albumin/Globulin Ratio 1.2 1-3 81 Total Bilirubin 1.10 mg/dL High 0.2-1.0 81 Direct Bilirubin 0.40 mg/dL High 0.03-0.18 81 Indirect Bilirubin 0.7 mg/dL 0.3-1.0 81 Alkaline Phosphatase 67 U/L 34-104 81 Alt 34 U/L 7-52 81 Ast 25 U/L 13-39 81 Laboratory test finding 07/09/2015 Ammonia 89 ?mol/L High 16-53 Lactic Acid 4.3 mmol/L High 0.5-2.2 82 CBC Auto Diff 07/09/2015 White Blood Count 9.1 10^3/uL 4.8-10.8 Red Blood Count 3.81 10^6/uL Low 4.0-5.4 Hemoglobin 13.5 g/dL 12.0-16.0 Hematocrit 41 % 35-47 Mean Corpuscular Volume 107 fL High 80-97 Mean Corpuscular Hemoglobin 35 pg High 27-31 Mean Corpuscular HGB Conc 33 g/dL 31-36 Red Cell Distribution Width 12 % 10.5-15 Platelet Count 81 10^3/uL Low 150-450 83 Mean Platelet Volume 9 um3 7.4-10.4 Abs Neutrophils 8.6 10^3/uL High 1.5-7.7 Abs Lymphocytes 0.3 10^3/uL Low 1.0-4.8 Abs Monocytes 0.2 10^3/uL 0-0.8 Abs Eosinophils 0 10^3/uL 0-0.6 Abs Basophils 0 10^3/uL 0-0.2 Abs Nucleated RBC 0 10^3/uL Granulocyte % 94.8 % High 38-83 Lymphocyte % 2.9 % Low 25-47 Monocyte % 2.1 % 1-9 Eosinophil % 0 % 0-6 Basophil % 0.2 % 0-2 Nucleated Red Blood Cells % 0 Urine Drug SCR ED 07/09/2015 Amphetamine Ur Screen None Detected None Detect & Pain Clinic Barbiturates Urine Screen None Detected None Detect Benzodiazepine Urine Screen None Detected None Detect Urine Cannabinoids Screen None Detected None Detect Urine Cocaine Screen None Detected None Detect Urine Opiates Screen None Detected None Detect Urine Phencyclidine Screen None Detected None Detect 84 Urinalysis Profile 07/09/2015 Urine Color Yellow Urine Appearance Clear Urine Specific [place] 1.006 Low 1.010-1.030 Urine pH 6.0 5-9 Urine Urobilinogen Negative Negative Urine Ketones Negative Negative Urine Protein 1+(30 mg/dL) Negative Urine Leukocytes 1+ Negative Urine Blood Negative Negative Urine Nitrite Negative Negative Urine Bilirubin Negative Negative Urine Glucose Negative Negative Urine White Blood Cell 2+(11-20/hpf) Absent Urine Red Blood Cell Absent Absent Urine Bacteria Absent Absent Urine Squamous Epithelial Cell Present Absent Laboratory test finding 07/09/2015 Serum HCG Qualitative Negative Negative Comp Metabolic Panel 07/09/2015 Sodium 128 mmol/L Low 133-145 Potassium 3.4 mmol/L Low 3.5-5.0 Chloride 93 mmol/L Low 101-111 Co2 Carbon Dioxide 20 mmol/L Low 22-32 Anion Gap 15 mmol/L High 2-11 Glucose 130 mg/dL High 70-100 Blood Urea Nitrogen 14 mg/dL 6-24 Creatinine 1.14 mg/dL High 0.51-0.95 BUN/Creatinine Ratio 12.3 8-20 Calcium 9.1 mg/dL 8.6-10.3 Total Protein 7.4 g/dL 6.4-8.9 Albumin 4.0 g/dL 3.2-5.2 Globulin 3.4 g/dL 2-4 Albumin/Globulin Ratio 1.2 1-3 Total Bilirubin 3.20 mg/dL High 0.2-1.0 Alkaline Phosphatase 132 U/L High 34-104 Egfr Non- 54.9 >60 Egfr 70.6 >60 85 Alt 1397 U/L High 7-52 Ast 5336 U/L High 13-39 Laboratory test finding 07/09/2015 TSH (Thyroid Stimulating 4.00 ?IU/mL 0.34-5.60 Horm) Acetaminophen < 15 g/mL 86 Alcohol < 10 mg/dL <10 Salicylate < 2.50 mg/dL <30 Direct Bilirubin 2.30 mg/dL High 0.03-0.18 Laboratory test finding 07/09/2015 Lipase 9 U/L Low 11.0-82.0 Urine Culture SEE RESULT BELOW 87 Comp Metabolic Panel 07/09/2015 Sodium 131 mmol/L Low 133-145 Potassium 4.6 mmol/L 3.5-5.0 Chloride 89 mmol/L Low 101-111 Co2 Carbon Dioxide 19 mmol/L Low 22-32 Anion Gap 23 mmol/L High 2-11 Glucose 55 mg/dL Low 70-100 Blood Urea Nitrogen 13 mg/dL 6-24 Creatinine 1.31 mg/dL High 0.51-0.95 BUN/Creatinine Ratio 9.9 8-20 Calcium 9.6 mg/dL 8.6-10.3 Total Protein 7.0 g/dL 6.4-8.9 Albumin 4.1 g/dL 3.2-5.2 Globulin 2.9 g/dL 2-4 Albumin/Globulin Ratio 1.4 1-3 Total Bilirubin 3.40 mg/dL High 0.2-1.0 Alkaline Phosphatase 110 U/L High 34-104 Egfr Non- 46.8 >60 Egfr 60.1 >60 88 Alt 745 U/L High 7-52 Ast 2450 U/L High 13-39 CBC Auto Diff 07/09/2015 White Blood Count 12.7 10^3/uL High 4.8-10.8 Red Blood Count 3.96 10^6/uL Low 4.0-5.4 Hemoglobin 13.9 g/dL 12.0-16.0 Hematocrit 42 % 35-47 Mean Corpuscular Volume 106 fL High 80-97 89 Mean Corpuscular Hemoglobin 35 pg High 27-31 Mean Corpuscular HGB Conc 33 g/dL 31-36 Red Cell Distribution Width 12 % 10.5-15 Platelet Count 85 10^3/uL Low 150-450 Mean Platelet Volume 9 um3 7.4-10.4 Abs Neutrophils 11.5 10^3/uL High 1.5-7.7 Abs Lymphocytes 0.6 10^3/uL Low 1.0-4.8 Abs Monocytes 0.4 10^3/uL 0-0.8 Abs Eosinophils 0 10^3/uL 0-0.6 Abs Basophils 0.1 10^3/uL 0-0.2 Abs Nucleated RBC 0 10^3/uL Granulocyte % 91.0 % High 38-83 Lymphocyte % 4.8 % Low 25-47 Monocyte % 3.6 % 1-9 Eosinophil % 0.1 % 0-6 Basophil % 0.5 % 0-2 Nucleated Red Blood Cells % 0 Laboratory test finding 07/09/2015 Vitamin B12 > 1450 pg/mL High 180- 914 90 Sydnie (Anti-Nuclear AB) Screen Negative Negative Smooth Muscle Antibody Negative Negative 91 Liver/Kidney Microsomes Ab <5.0 U 92 Inr/Protime 07/09/2015 Inr 2.42 High 0.89-1.11 93 CBC Auto Diff 04/02/2015 White Blood Count 4.1 10^3/uL Low 4.8-10.8 Red Blood Count 4.03 10^6/uL 4.0-5.4 Hemoglobin 14.3 g/dL 12.0-16.0 Hematocrit 43 % 35-47 Mean Corpuscular Volume 106 fL High 80-97 Mean Corpuscular Hemoglobin 35 pg High 27-31 Mean Corpuscular HGB Conc 34 g/dL 31-36 Red Cell Distribution Width 13 % 10.5-15 Platelet Count 123 10^3/uL Low 150-450 Mean Platelet Volume 8 um3 7.4-10.4 Abs Neutrophils 1.7 10^3/uL 1.5-7.7 Abs Lymphocytes 1.8 10^3/uL 1.0-4.8 Abs Monocytes 0.5 10^3/uL 0-0.8 Abs Eosinophils 0.1 10^3/uL 0-0.6 Abs Basophils 0 10^3/uL 0-0.2 Abs Nucleated RBC 0.01 10^3/uL Granulocyte % 40.5 % 38-83 Lymphocyte % 43.8 % 25-47 Monocyte % 12.7 % High 1-9 Eosinophil % 2.0 % 0-6 Basophil % 1.0 % 0-2 Nucleated Red Blood Cells % 0.1 Laboratory test 04/02/2015 D Dimer Quantitative 258 ng/mL High Less Than 230 94 finding Comp Metabolic Panel 04/02/2015 Sodium 137 mmol/L 133-145 Potassium 3.3 mmol/L Low 3.5-5.0 Chloride 100 mmol/L Low 101-111 Co2 Carbon Dioxide 27 mmol/L 22-32 Anion Gap 10 mmol/L 2-11 Glucose 106 mg/dL High 70-100 Blood Urea Nitrogen 13 mg/dL 6-24 Creatinine 0.85 mg/dL 0.51-0.95 BUN/Creatinine Ratio 15.3 8-20 Calcium 9.2 mg/dL 8.6-10.3 Total Protein 7.7 g/dL 6.4-8.9 Total Bilirubin 0.50 mg/dL 0.2-1.0 Alkaline Phosphatase 56 U/L 34-104 Alt 112 U/L High 7-52 Ast 182 U/L High 13-39 Egfr Non- 77.0 >60 Egfr 99.1 >60 95 Albumin 4.9 g/dL 3.2-5.2 Globulin 2.8 g/dL 2-4 Albumin/Globulin Ratio 1.8 1-3 Laboratory test finding 04/02/2015 Troponin I 0.00 ng/mL <0.03 96 TSH (Thyroid Stimulating Horm) 2.23 ?IU/mL 0.34-5.60 Gardnerella/Yeast: 11/11/2014 Gardnerella/Yeast: (SEE NOTE) 97, 98 Vaginal Dna Vaginal Dna Laboratory test 11/11/2014 Trichomonas vaginalis Negative Negative 97, 99 finding Rna GC/Chlamydia Amplified 11/11/2014 Chlamydia trachomatis Negative Negative 97 Rna Rna Neisseria gonorrhoeae (GC) Rna Negative Negative 97, 100 HSV/VZV Derm PCR 11/11/2014 hs/VZ Source vulva 97 HSV 1 PCR Negative Negative 97 HSV 2 PCR Negative Negative 97, 101 Varicella Zoster Source vulva 97 Varicella Zoster Result Negative Negative 97, 102 Urine Culture And 11/11/2014 Urine Culture (SEE NOTE) 103 Sensitivities Laboratory test finding 05/17/2014 Vitamin B12 287 pg/mL 180-914 104 CBC Auto Diff 05/17/2014 White Blood Count 5.3 10^3/uL 4.8-10.8 Red Blood Count 3.82 10^6/uL Low 4.0-5.4 Hemoglobin 13.5 g/dL 12.0-16.0 Hematocrit 40 % 35-47 Mean Corpuscular Volume 104 fL High 80-97 Mean Corpuscular Hemoglobin 35 pg High 27-31 Mean Corpuscular HGB Conc 34 g/dL 31-36 Red Cell Distribution Width 14 % 10.5-15 Platelet Count 136 10^3/uL Low 150-450 Mean Platelet Volume 8 um3 7.4-10.4 Abs Neutrophils 3.4 10^3/uL 1.5-7.7 Abs Lymphocytes 1.5 10^3/uL 1.0-4.8 Abs Monocytes 0.4 10^3/uL 0-0.8 Abs Eosinophils 0 10^3/uL 0-0.6 Abs Basophils 0 10^3/uL 0-0.2 Abs Nucleated RBC 0 10^3/uL Granulocyte % 63.9 % 38-83 Lymphocyte % 27.6 % 25-47 Monocyte % 7.4 % 1-9 Eosinophil % 0.5 % 0-6 Basophil % 0.6 % 0-2 Nucleated Red Blood Cells % 0.1 CMP - Comprehensive Metabolic 05/17/2014 Sodium 137 mmol/L 133-145 Potassium 3.3 mmol/L Low 3.7-5.6 Chloride 105 mmol/L 101-111 Co2 Carbon Dioxide 23 mmol/L 22-32 Anion Gap 9 mmol/L 2-11 Glucose 107 mg/dL High 70-100 Blood Urea Nitrogen 7 mg/dL 6-24 Creatinine 0.68 mg/dL 0.51-0.95 BUN/Creatinine Ratio 10.3 8-20 Calcium 8.6 mg/dL 8.6-10.3 Total Protein 7.4 g/dL 6.4-8.9 Albumin 4.3 g/dL 3.2-5.2 Globulin 3.1 g/dL 2-4 Albumin/Globulin Ratio 1.4 1-3 Total Bilirubin 0.40 mg/dL 0.2-1.0 Alkaline Phosphatase 42 U/L 34-104 Alt 24 U/L 7-52 Ast 80 U/L High 13-39 Egfr Non- 100.3 >60 Egfr 129.0 >60 105 Laboratory test finding 05/17/2014 Amylase 22 U/L Low 29-103 Lipase 29 U/L 11.0-82.0 Laboratory test finding 05/15/2014 HCG DIP Test NEG Neg Urine Culture And 05/15/2014 Urine Culture (SEE NOTE) 106 Sensitivities Urine DIP 05/15/2014 Specific [place] 1.015 1.01-1.02 Urine pH 6 5-6 Leukocytes ++ Neg Urine Nitrites NEG Neg Total Protein, Urine TRACE Neg Urine Glucose NORM Norm Urine Ketones NEG Neg Urobilinogen NORM Norm Urine Bilirubin NRG Neg Urine Blood TRACE Neg Urine DIP 01/22/2014 Specific [place] 1.025 High 1.01-1.02 Urine pH 5 5-6 Leukocytes NEG Neg Urine Nitrites NEG Neg Total Protein, Urine TRACE Neg Urine Glucose NORM Norm Urine Ketones NEG Neg Urobilinogen NORM Norm Urine Bilirubin NEG Neg Urine Blood 50 High Neg Laboratory test finding 01/17/2014 Creatine Kinase 125 U/L 10-223 107, 108 Troponin I 0.00 ng/mL <0.03 107, 109 Acetaminophen < 15 g/mL 107, 110 Alcohol 303 mg/dL High <10 107, 111 TSH (Thyroid Stimulating Horm) 1.43 IU/mL 0.34-5.60 107, 112 Comp Metabolic Panel 01/17/2014 Sodium 141 mmol/L 133-145 107 Potassium 3.4 mmol/L Low 3.7-5.6 107 Chloride 108 mmol/L 101-111 107 Co2 Carbon Dioxide 24 mmol/L 22-32 107 Anion Gap 9 mmol/L 2-11 107 Glucose 111 mg/dL High 70-100 107 Blood Urea Nitrogen 10 mg/dL 6-24 107 Creatinine 0.69 mg/dL 0.51-0.95 107 BUN/Creatinine Ratio 14.5 8-20 107 Calcium 8.4 mg/dL Low 8.6-10.3 107 Total Protein 7.1 g/dL 6.4-8.9 107 Albumin 4.0 g/dL 3.2-5.2 107 Globulin 3.1 g/dL 2-4 107 Albumin/Globulin Ratio 1.3 1-3 107 Total Bilirubin 0.20 mg/dL 0.2-1.0 107 Alkaline Phosphatase 49 U/L 34-104 107 Alt 30 U/L 7-52 107 Ast 44 U/L High 13-39 107 Egfr Non- 98.6 >60 107 Egfr 126.8 >60 107, 113 Laboratory test finding 01/17/2014 Activated Partial 31.0 seconds 24.0- 36.1 107 Thrombo Time D Dimer Quantitative < 200 ng/mL Less Than 230 107, 114 Inr/Protime 01/17/2014 Inr 0.86 0.85-1.06 107 Laboratory test 01/17/2014 Serum Negative Negative 107, 115 finding CBC Auto Diff 01/17/2014 White Blood Count 4.5 10^3/uL Low 4.8-10.8 107 Red Blood Count 3.66 10^6/uL Low 4.0-5.4 107 Hemoglobin 12.9 g/dL 12.0-16.0 107 Hematocrit 37 % 35-47 107 Mean Corpuscular Volume 101 fL High 80-97 107 Mean Corpuscular Hemoglobin 35 pg High 27-31 107 Mean Corpuscular HGB Conc 35 g/dL 31-36 107 Red Cell Distribution Width 13 % 10.5-15 107 Platelet Count 223 10^3/uL 150-450 107 Mean Platelet Volume 8 um3 7.4-10.4 107 Abs Neutrophils 1.8 10^3/uL 1.5-7.7 107 Abs Lymphocytes 2.1 10^3/uL 1.0-4.8 107 Abs Monocytes 0.5 10^3/uL 0-0.8 107 Abs Eosinophils 0 10^3/uL 0-0.6 107 Abs Basophils 0 10^3/uL 0-0.2 107 Abs Nucleated RBC 0 10^3/uL 107 Granulocyte % 40.4 % 38-83 107 Lymphocyte % 46.9 % 25-47 107 Monocyte % 11.6 % High 1-9 107 Eosinophil % 0.6 % 0-6 107 Basophil % 0.5 % 0-2 107 Nucleated Red Blood Cells % 0 107 Urine Drug SCR ED 01/17/2014 Amphetamine Ur Screen None Detected None Detect 116 [facility] Barbiturates Urine Screen None Detected None Detect 116 Benzodiazepine Urine Screen None Detected None Detect 116 Urine Cannabinoids Screen None Detected None Detect 116 Urine Cocaine Screen None Detected None Detect 116 Urine Opiates Screen None Detected None Detect 116 Urine Phencyclidine Screen None Detected None Detect 116, 117 Urine DIP 08/06/2013 Leukocytes 1+ High Neg Urine Nitrites neg Neg Urine pH 5 5-6 Total Protein, Urine neg Neg Urine Glucose norm Norm Urine Ketones neg Neg Urobilinogen norm Norm Urine Bilirubin neg Neg Urine Blood neg Neg Specific [place] 1.010 1.01-1.02 Laboratory test 08/06/2013 Cytology RUN DATE: finding <SEE NOTE> GC/Chlamydia Amplified 08/06/2013 GC/Chlamydia Rna (SEE NOTE) 119 Rna Laboratory test 08/06/2013 Affirm Vaginal Dna Probe (SEE NOTE) 120 finding Human Papilloma 08/06/2013 Human Papillomavirus See Comment 121 Source Human Papillomavirus High Risk Negative Negative 122 Herpes Simplex Type 08/06/2013 Herpes Simplex Type 1 2 Negative Negative 123 1&2 Igm IgM Herpes Simplex Type 08/06/2013 Herpes Simplex Virus I Positive Negative 1&2 Igg IgG AB Herpes Simplex Virus II IgG AB Negative Negative 124 Urine DIP 06/04/2013 Leukocytes neg Neg Urine Nitrites neg Neg Urine pH 9 High 5-6 Total Protein, Urine neg Neg Urine Glucose norm Norm Urine Ketones neg Neg Urobilinogen norm Norm Urine Bilirubin neg Neg Urine Blood trace Neg Specific [place] 1.000 Low 1.01-1.02 Stool For Blood 05/18/2013 Stool Occult Blood (SEE NOTE) 125 Stool Panel ([facility]) 05/18/2013 O P: Giardia/Cryptospor Screen (SEE NOTE) 126 Stool Culture (SEE NOTE) 127 Laboratory test finding 05/18/2013 C. difficile Amplified Dna (SEE NOTE) 128 Fecal Lactoferrin (Stool WBC) (SEE NOTE) 129 Urine DIP 05/17/2013 Leukocytes neg Neg Urine Nitrites neg Neg Urine pH 7 High 5-6 Total Protein, Urine neg Neg Urine Glucose norm Norm Urine Ketones neg Neg Urobilinogen norm Norm Urine Bilirubin neg Neg Urine Blood 50+ High Neg Specific [place] 1.005 Low 1.01-1.02 Urine Culture And 05/17/2013 Urine Culture (SEE NOTE) 130 Sensitivities CBC No Diff 02/09/2013 White Blood Count 6.2 10^3/uL 4.8-10.8 Red Blood Count 3.69 10^6/uL Low 4.0-5.4 Hemoglobin 12.5 g/dL 12.0-16.0 Hematocrit 37 % 35-47 Mean Corpuscular Volume 101 fL High 80-97 Mean Corpuscular Hemoglobin 34 pg High 27-31 Mean Corpuscular HGB Conc 34 g/dL 31-36 Red Cell Distribution Width 12 % 10.5-15 Platelet Count 194 10^3/uL 150-450 Mean Platelet Volume 10 um3 7.4-10.4 Laboratory test finding 02/09/2013 Vitamin B12 240 pg/mL 180-914 Basic Metabolic Panel 02/09/2013 Sodium 141 mmol/L 133-145 Potassium 3.9 mmol/L 3.5-5.0 Chloride 106 mmol/L 101-111 Co2 Carbon Dioxide 28.0 mmol/L 22-32 Anion Gap 7.0 mmol/L 2-11 Glucose 88 mg/dL 70-100 Blood Urea Nitrogen 8 mg/dL 6-24 Creatinine 0.80 mg/dL 0.50-1.40 BUN/Creatinine Ratio 10.0 8-20 Calcium 9.1 mg/dL 8.1-9.9 Egfr Non- 83.7 >60 Egfr 107.6 >60 131 Laboratory test finding 02/09/2013 TSH (Thyroid 1.07 miu/mL 0.34-5.60 Stimulating Horm) Urine Culture And 01/02/2013 Urine Culture (SEE NOTE) 132 Sensitivities Affirm Vaginal Dna Probe 01/02/2013 Affirm Vaginal Dna (SEE NOTE) 133 Probe Laboratory test finding 01/07/2012 TSH 1.01 MIU/ML 0.34-5.60 Vitamin B12 386 pg/mL 180-914 Vitamin D, 1,25 Dihydroxy 41 pg/mL 18-78 134 1 SEE RESULT BELOW Name: SILVIANO SHARP : [address]: Saranya Meehan NP Acct: [id number] Unit: [id number] AGE: 36 Location: [facility] Re07/11/17 SEX: F Status: REG REF SPEC: [id number] JIMMIE: 07/11/[address] [facility] [address]: Saranya Meehan NP REQ: [id number] RECD: 07/11/17 STATUS: COMP _ SOURCE: VAGINAL SPDESC: ORDERED: Goldie,Yeast DNA COMMENTS: [id number] Procedure Result Reported Site Gardnerella/Yeast: Vaginal DNA Final 07/12/17- 1141 ML Organism 1 POSITIVE GARDNERELLA Organism 2 Negative Lashell The presence of G. vaginalis, although suggestive, is not diagnostic for bacterial vaginosis. Results should be interpreted in conjuction with other clinical and laboratory data available. Women with vaginal discharge should be evaluated for risk factors of cervicitis and pelvic inflammatory disease, toxic shock syndrome (S.aureus), and if present, evaluated for organisms not included in this assay such as N. gonorrhoeae, C. trachomatis, Mobiluncus, Mycoplasma and/or Prevotella. Mixed infections may occur. The performance of this test on patient specimens collected during or immediately after antimicrobial therapy is unknown. The presence or absence of Lashell species, or G. vaginalis cannot be used as a test for therapeutic success or failure. * ML - MAIN LAB ([facility]) . END OF REPORT * ML=Testing performed at Main Lab DEPARTMENT OF PATHOLOGY, [address] [place] [address] Arnel Mon M.D. Director [facility] # [id number] GC/Chlamydia Source?: Endocervical Trichomonas Source: Endocervical 3 [id number] 4 No bands detected 5 No bands detected 6 Specific serologic response to B. burgdorferi infection is not detected, but cannot rule out early infection during which low or undetectable antibody levels to B. burgdorferi may be present. If clinically indicated, a new serum specimen should be submitted in 7-14 days. ADDITIONAL INFORMATION CDC criteria require >=5 bands for IgG or >=2 bands for IgM for the Immunoblot to be considered positive. Bands (e.g.,p41) may be detected in patients without Lyme disease, and patterns not meeting the CDC criteria should be interpreted with caution. Immunoblot should be ordered only on specimens that are positive or equivocal by a FDA-licensed Lyme disease antibody screening test (e.g., EIA). Test Performed by: [facility] [employer] - [address] [address] 7 REFERENCE VALUE Cutoff: 500 8 REFERENCE VALUE Cutoff: 200 9 REFERENCE VALUE Cutoff: 100 10 REFERENCE VALUE Cutoff: 150 11 ADDITIONAL INFORMATION This report is intended for use in clinical monitoring or management of patients. It is not intended for use in employment-related testing. 12 REFERENCE VALUE Cutoff: 200 mg/L 13 Tylenol 3 14 Metabolite of codeine REFERENCE VALUE Cutoff: 100 15 Jessica Pacheco, Contin; Also a minor metabolite (10%) of codeine and can be seen in low concentrations (<2,000 ng/mL) with poppy seed ingestion. 16 Metabolite of morphine REFERENCE VALUE Cutoff: 100 17 Metabolite of heroin 18 Lortab, [place], Vicodin; Also a very minor metabolite of codeine and impurity (<1%) of oxycodone. 19 Metabolite of hydrocodone 20 Metabolite of hydrocodone 21 Dilaudid, Exalgo; Also a metabolite of hydrocodone and a minor (<5%) metabolite of morphine. 22 Metabolite of hydromorphone REFERENCE VALUE Cutoff: 100 23 Endocet, Percocet, Oxycontin 24 Metabolite of oxycodone 25 Numorphan, Opana; Also a metabolite of oxycodone. 26 Metabolite of oxymorphone REFERENCE VALUE Cutoff: 100 27 Metabolite of oxymorphone 28 Actiq, Duragesic, Fentora 29 Metabolite of fentanyl 30 Demerol 31 Metabolite of meperidine 32 Narcan 33 Metabolite of naloxone REFERENCE VALUE Cutoff: 100 34 Dolophine 35 Metabolite of methadone 36 Darvon, Darvocet 37 Metabolite of propoxyphene 38 Tradol, Ultram, Ultracet 39 Metabolite of tramadol 40 Nucynta 41 Metabolite of tapentadol 42 Metabolite of tapentadol REFERENCE VALUE Cutoff: 100 43 Buprenex, Suboxone 44 Metabolite of buprenorphine 45 Metabolite of buprenorphine 46 Test detected the presence of oxycodone and several metabolites (noroxycodone, oxymorphone, noroxymorphone, and uoocpcbiylv-9-zkuo-glucuronide). Suspect use of oxycodone or possibly oxycodone and oxymorphone within the past three days. ADDITIONAL INFORMATION This test was developed and its performance characteristics determined by [facility] in a manner consistent with CLIA requirements. This test has not been cleared or approved by the U.S. Food and Drug Administration. Test Performed by: [facility] - [address] [address] 47 SEE RESULT BELOW Name: SILVIANO SHARP : [address]: Saranya Meehan NP Acct: [id number] Unit: [id number] AGE: 35 Location: [facility] Re09/10/16 SEX: F Status: REG REF SPEC: [id number] JIMMIE: 09/10/[address] [facility] [address]: Saranya Meehan NP REQ: [id number] RECD: 09/10/16 STATUS: COMP _ SOURCE: VAGINAL [facility]: ORDERED: Goldie,Yeast DNA COMMENTS: [id number] Procedure Result Reported Site Gardnerella/Yeast: Vaginal DNA Final 09/11/16- 1106 ML Organism 1 Negative Gardnerella Organism 2 Negative Lashell The presence of G. vaginalis, although suggestive, is not diagnostic for bacterial vaginosis. Results should be interpreted in conjuction with other clinical and laboratory data available. Women with vaginal discharge should be evaluated for risk factors of cervicitis and pelvic inflammatory disease, toxic shock syndrome (S.aureus), and if present, evaluated for organisms not included in this assay such as N. gonorrhoeae, C. trachomatis, Mobiluncus, Mycoplasma and/or Prevotella. Mixed infections may occur. The performance of this test on patient specimens collected during or immediately after antimicrobial therapy is unknown. The presence or absence of Lashell species, or G. vaginalis cannot be used as a test for therapeutic success or failure. * ML - MAIN LAB ([facility]) . END OF REPORT * ML=Testing performed at Main Lab DEPARTMENT OF PATHOLOGY, [address] [place] [address] Arnel Mon M.D. Director [facility] # [id number] 48 [id number] GC/Chlamydia Source?: Endocervical Trichomonas Source: Endocervical 49 Because ethnic data is not always readily available, this report includes an eGFR for both -Americans and non- Americans. The National Kidney Disease Education Program (NKDEP) does not endorse the use of the MDRD equation for patients that are not between the ages of 18 and 70, are , have extremes of body size, muscle mass, or nutritional status, or are non- or non-. According to the National Kidney Foundation, irrespective of diagnosis, the stage of the disease is based on the level of kidney function: Stage Description GFR(mL/min/1.73 m(2)) 1 Kidney damage with normal or decreased GFR 90 2 Kidney damage with mild decrease in GFR 60-89 3 Moderate decrease in GFR 30-59 4 Severe decrease in GFR 15-29 5 Kidney failure <15 (or dialysis) 50 Acute inflammation: >10.00 51 <5.0 Negative 5.0 - 25.0 Indeterminate (Repeat testing recommended after 72 hours) >25.0 Positive Perimenopausal women can display HCG levels of up to 20 mIU/mL 52 [id number] 53 SEE RESULT BELOW Name: SILVIANO SHARP : [address]: Skylar Zambrano MD Acct: [id number] Unit: [id number] AGE: 35 Location: [facility] Re01/08/16 SEX: F Status: DEP ER SPEC: [id number] JIMMIE: 01/08/16-[address] [facility] [address]: Skylar Zambrano MD REQ: [id number] RECD: 01/09/16 STATUS: DUANE ALEJANDRE DR: [facility] Saranya Meehan NP _ SOURCE: URINE SPDESC: ORDERED: Urine Culture COMMENTS: [id number] Procedure Result Reported Site Urine Culture Final 01/10/16- 1223 ML No Growth (<1,000 CFU/mL) * ML - MAIN LAB ([facility]) . END OF REPORT * ML=Testing performed at Main Lab DEPARTMENT OF PATHOLOGY, [address] [place] [address] Arnel Mon M.D. Director [facility] # [id number] 54 SEE RESULT BELOW Name: SILVIANO SHARP : [address]: Saranya Meehan NP Acct: [id number] Unit: [id number] AGE: 35 Location: [facility] Re01/05/16 SEX: F Status: REG REF SPEC: [id number] JIMMIE: 01/05/16-[address]: Saranya Meehan NP REQ: [id number] RECD: 01/05/16 STATUS: COMP _ SOURCE: URINE SPDESC: ORDERED: Urine Culture Procedure Result Reported Site Urine Culture Final 01/07/16- 918 ML No Growth (<1,000 CFU/mL) * ML - MAIN LAB ([facility]) . END OF REPORT * ML=Testing performed at Main Lab DEPARTMENT OF PATHOLOGY, [address] [place] [address] Arnel Mon M.D. Director [facility] # [id number] 55 Test Performed by: [place] [address] [employer] Cell Assembly Machine Tender: Roberto Alvarado II, M.D., Ph.D. 56 Normal Range 180 to 914 Indeterminate Range 145 to 180 Deficient Range <145 57 Test Performed by: [address] [address] [employer] Tender: Roberto Alvarado II, M.D., Ph.D. 58 Acute inflammation: >10.00 59 REFERENCE VALUE <20.0 (Negative) Test Performed by: [facility] - [address] [address] [employer] Tender: Roberto Alvarado II, M.D., Ph.D. 60 No bands detected 61 No bands detected 62 Specific serologic response to B. burgdorferi infection is not detected, but cannot rule out early infection during which low or undetectable antibody levels to B. burgdorferi may be present. If clinically indicated, a new serum specimen should be submitted in 7-14 days. ADDITIONAL INFORMATION CDC criteria require >=5 bands for IgG or >=2 bands for IgM for the Immunoblot to be considered positive. Bands (e.g.,p41) may be detected in patients without Lyme disease, and patterns not meeting the CDC criteria should be interpreted with caution. Immunoblot should be ordered only on specimens that are positive or equivocal by a FDA-licensed Lyme disease antibody screening test (e.g., EIA). Test Performed by: [facility] - [address] [address] [employer] Machine Tender: Roberto Alvarado II, M.D., Ph.D. 63 REFERENCE VALUE Cutoff: 500 64 REFERENCE VALUE Cutoff: 200 65 REFERENCE VALUE Cutoff: 200 66 REFERENCE VALUE Cutoff: 150 67 REFERENCE VALUE Cutoff: 150 68 REFERENCE VALUE Cutoff: 300 69 ADDITIONAL INFORMATION This report is intended for use in clinical monitoring or management of patients. It is not intended for use in employment-related testing. 70 Presumptive Positive Drug confirmation to follow. Presumptive Positive means that the screening method is positive, but the test needs to be run by a confirmatory method before being finalized. REFERENCE VALUE Cutoff: 100 ADDITIONAL INFORMATION This report is intended for use in clinical monitoring or management of patients. It is not intended for use in employment-related testing. Test Performed by: [address] [address] [employer] Machine Tender: Roberto Alvarado II, MAsher, Ph.D. 71 REFERENCE VALUE Cutoff: 100 72 REFERENCE VALUE Cutoff: 100 73 ADDITIONAL INFORMATION This report is intended for use in clinical monitoring and management of patients. It is not intended for use in employment-related testing. Test Performed by: [facility] - [address] [address] [employer] Machine Tender: Roberto Alvarado II, M.D., Ph.D. 74 SEE RESULT BELOW Name: SILVIANO SHARP : [address]: Saranya Meehan NP Acct: [id number] Unit: [id number] AGE: 34 Location: [facility] Re10/10/15 SEX: F Status: REG REF SPEC: [id number] JIMMIE: 10/10/15-[address] [facility] [address]: Saranya Meehan NP REQ: [id number] RECD: 10/10/153253 STATUS: SOUT _ ORDERED: IMAGE ANALYSIS, HPV/Thin Prep, HPV 16/18 GENE FINAL DIAGNOSIS Negative for Intraepithelial lesion or Malignancy A. Ectocervical/Endocervical Specimen Adequacy: Satisfactory of evaluation Transformation zone component identified Patient Information: HPV: High risk HPV RNA testing regardless of pap results. HPV 16/18 Genotype for HPV pos Actual Specimen Date: 10/10/15 LMP If Unknown: May 2015 Date of Last Specimen: 08/06/13 ?: N Post Menopausal?: N Hysterectomy?: N Date Time Test Result Flag (u) Normal Range 10/10/15 1447 HPV RNA RFLX GE POSITIVE H Negative The high-risk HPV types detected by the assay include: 16, 18, 31, 33, 35, 39, 45, 51, 52, 56, 58, 59, 66, and 68. Signed (signature on file) KARINA Kidd(ASCP) 10/13 1555 This Pap test was evaluated with the assistance of the [employer] Test Imaging System. Due to cytologic findings at the label cutter microscope, comprehensive manual rescreening by a Labor Gang Supervisor may be required. The Pap Smear is a screening test designed to aid in the detection of premalignant and malignant conditions of the uterine cervix. It is not a diagnostic procedure and should not be used as the sole means of detecting cervical cancer. Both false- positive and false- negative reports do occur. Depending on your risk status, a Pap smear should be obtained and evaluated every 1-3 years. END OF REPORT * ML=Testing performed at Main Lab DEPARTMENT OF PATHOLOGY, [address] [place] [address] Arnel Mon M.D. Director [facility] # [id number] 75 The high-risk HPV types detected by the assay include: 16, 18, 31, 33, 35, 39, 45, 51, 52, 56, 58, 59, 66, and 68. 76 Because ethnic data is not always readily available, this report includes an eGFR for both -Americans and non- Americans. The National Kidney Disease Education Program (NKDEP) does not endorse the use of the MDRD equation for patients that are not between the ages of 18 and 70, are , have extremes of body size, muscle mass, or nutritional status, or are non- or non-. According to the National Kidney Foundation, irrespective of diagnosis, the stage of the disease is based on the level of kidney function: Stage Description GFR(mL/min/1.73 m(2)) 1 Kidney damage with normal or decreased GFR 90 2 Kidney damage with mild decrease in GFR 60-89 3 Moderate decrease in GFR 30-59 4 Severe decrease in GFR 15-29 5 Kidney failure <15 (or dialysis) 77 Desirable <150 Borderline high 150-199 High 200-499 Very High >500 78 Desirable <200 Borderline high 200-239 High >239 79 Low <40 Desirable: 40-60 High: >60 80 Desirable: <100 mg/dL Near Optimal: 100-129 mg/dL Borderline High: 130-159 mg/dL High: 160-189 mg/dL Very High: >189 mg/dL 81 please fax results to Dr. Neff [phone] Critical Result LACT:4.3 Called to DIPTI/CORINNA at: 16:13:23 by:[id number] Read back by:DIPTI/CORINNA 83 Consistent with previous results on 07/09/15. 84 The urine specimen was tested at the listed cutoffs: Drug class test level (ng/mL) Amphetamines 500 Barbituates 200 Benzodiazepine metabolites 200 Cocaine metabolites 150 Cannabinoids 50 Opiates 300 Pcp 25 This is a screening procedure. Positive results are not confirmed. Specimen was received without chain of custody. Results should be used for medical purposes only. 85 Because ethnic data is not always readily available, this report includes an eGFR for both -Americans and non- Americans. The National Kidney Disease Education Program (NKDEP) does not endorse the use of the MDRD equation for patients that are not between the ages of 18 and 70, are , have extremes of body size, muscle mass, or nutritional status, or are non- or non-. According to the National Kidney Foundation, irrespective of diagnosis, the stage of the disease is based on the level of kidney function: Stage Description GFR(mL/min/1.73 m(2)) 1 Kidney damage with normal or decreased GFR 90 2 Kidney damage with mild decrease in GFR 60-89 3 Moderate decrease in GFR 30-59 4 Severe decrease in GFR 15-29 5 Kidney failure <15 (or dialysis) 86 Therapeutic concentration: <50 ug/mL Toxic concentration: >120 ug/mL 87 SEE RESULT BELOW Name: SILVIANO SHARP : [address]: Loreto Perez MD Acct: [id number] Unit: [id number] AGE: 34 Location: [facility] Re07/09/15 SEX: F Status: DEP ER SPEC: [id number] JIMMIE: 07/09/15-[address] [facility] [address]: Loreto Perez MD REQ: [id number] RECD: 07/09/15 STATUS: DUANE ALEJANDRE DR: Saranya Meeahn SHIP'S CAPTAIN _ SOURCE: URINE [facility]: ORDERED: Urine Culture Procedure Result Verified Site Urine Culture Final 07/11/15- 0859 ML Organism 1 ESCHERICHIA COLI [place] Count >100,000 (Many) CFU/ML 1. ESCHERICHIA COLI M.I.C. RX --------- ------ Ampicillin <=2 S Cefazolin <=4 S Cefepime <=1 S Ceftriaxone <=1 S Ciprofloxacin <=0.25 S Gentamicin <=1 S Levofloxacin <=0.12 S Meropenem <=0.25 S Nitrofurantoin <=16 S Tetracycline <=1 S Pipercillin/Tazobactam <=4 S Trimethoprim/Sulfamethoxazole <=20 S Amoxicillin/Clavulanic Acid <=2 S Aztreonam <=1 S Contact the Microbiology Department for any additional antibiotic reporting. * ML - MAIN LAB ([facility]) . END OF REPORT * ML=Testing performed at Main Lab DEPARTMENT OF PATHOLOGY, [address] [place] [address] Arnel Mon M.D. Director [facility] # [id number] 88 Because ethnic data is not always readily available, this report includes an eGFR for both -Americans and non- Americans. The National Kidney Disease Education Program (NKDEP) does not endorse the use of the MDRD equation for patients that are not between the ages of 18 and 70, are , have extremes of body size, muscle mass, or nutritional status, or are non- or non-. According to the National Kidney Foundation, irrespective of diagnosis, the stage of the disease is based on the level of kidney function: Stage Description GFR(mL/min/1.73 m(2)) 1 Kidney damage with normal or decreased GFR 90 2 Kidney damage with mild decrease in GFR 60-89 3 Moderate decrease in GFR 30-59 4 Severe decrease in GFR 15-29 5 Kidney failure <15 (or dialysis) 89 Consistent with previous results on 04/02/15. 90 Normal Range 180 to 914 Indeterminate Range 145 to 180 Deficient Range <145 91 Test Performed by: [place] [address] [employer] Cell Assembly Machine Tender: Roberto Alvarado II, M.D., Ph.D. 92 REFERENCE VALUE <=20.0 (Negative) Test Performed by: [place] [address] [employer] Machine Tender: Roberto Alvarado II, M.D., Ph.D. 93 Effective immediately, due to a laboratory mean normal Protime change, the reference range for the INR has changed. 94 Please note: The following may produce a false positive D Dimer test: - Rheumatoid factor greater than 60 IU/ml - Plasma hemoglobin greater than 0.05 gm/dl - Bilirubin greater than 50 mg/dl - Lipids greater than 1000 mg/dl - FDP greater than 20 ug/ml 95 Because ethnic data is not always readily available, this report includes an eGFR for both -Americans and non- Americans. The National Kidney Disease Education Program (NKDEP) does not endorse the use of the MDRD equation for patients that are not between the ages of 18 and 70, are , have extremes of body size, muscle mass, or nutritional status, or are non- or non-. According to the National Kidney Foundation, irrespective of diagnosis, the stage of the disease is based on the level of kidney function: Stage Description GFR(mL/min/1.73 m(2)) 1 Kidney damage with normal or decreased GFR 90 2 Kidney damage with mild decrease in GFR 60-89 3 Moderate decrease in GFR 30-59 4 Severe decrease in GFR 15-29 5 Kidney failure <15 (or dialysis) 96 Reference Range and Interpretation: TnI (ng/mL) Interpretation Less Than 0.03 ng/mL Not supportive of diagnosis of NE 0.03 - 0.50 ng/mL Indeterminate: suggest serial studies if clinically indicated. Greater than 0.5 ng/mL Consistent with diagnosis of NE 97 [facility] Specimen Source: CERVICAL 98 RUN DATE: 11/12/14 [facility] LAB LIVE PAGE 1 RUN TIME: 1438 [address] [place], [place] [address] Specimen Inquiry Name: SILVIANO SHARP : [address]: Yo Palm MD Acct: [id number] Unit: [id number] AGE: 33 Location: [facility] Re11/11/14 SEX: F Status: DEP ER SPEC: [id number] JIMMIE: 11/11/14-[address] [facility] [address]: Rosa JUAREZ REQ: [id number] RECD: 11/11/14160 STATUS: DUANE ALEJANDRE DR: Yo Pickard SHIP'S CAPTAIN _ SOURCE: VAGINAL SPDESC: ORDERED: Goldie,Yeast DNA Procedure Result Verified Site Gardnerella/Yeast: Vaginal DNA Final 11/12/14- 1438 L Organism 1 Negative Gardnerella Organism 2 POSITIVE LASHELL The presence of G. vaginalis, although suggestive, is not diagnostic for bacterial vaginosis. Results should be interpreted in conjuction with other clinical and laboratory data available. Women with vaginal discharge should be evaluated for risk factors of cervicitis and pelvic inflammatory disease, toxic shock syndrome (S.aureus), and if present, evaluated for organisms not included in this assay such as N. gonorrhoeae, C. trachomatis, Mobiluncus, Mycoplasma and/or Prevotella. Mixed infections may occur. The performance of this test on patient specimens collected during or immediately after antimicrobial therapy is unknown. The presence or absence of Lashell species, or G. vaginalis cannot be used as a test for therapeutic success or failure. END OF REPORT * ML=Testing performed at Main Lab DEPARTMENT OF PATHOLOGY, [facility] [employer] [place], [place] [address] Arnel Mon M.D. Director [facility] # [id number] 99 [facility] Specimen Source: CERVICAL Endocervical Endocervical 10 Female urine specimens have been self-validated by [address] [facility] and have been granted conditional assay approval by [facility]. 10 ADDITIONAL INFORMATION 1 Analyte Specific Reagent: This test was developed and its performance characteristics determined by [facility]. It has not been cleared or approved by the U.S. Food and Drug Administration. 10 ADDITIONAL INFORMATION 2 Laboratory developed test. Test Performed by: [facility] - [address] [address] [employer] Cell Assembly Machine Tender: Roberto Alvarado II, M.D., Ph.D. 10 RUN DATE: 11/13/14 [facility] LAB LIVE PAGE 1 3 RUN TIME: 1126 [facility] [place], [place] [address] Specimen Inquiry Name: SILVIANO SHARP : [address]: Yo Palm MD Acct: [id number] Unit: [id number] AGE: 33 Location: [facility] Re11/11/14 SEX: F Status: DEP ER SPEC: [id number] JIMMIE: 11/11/14-[address] [facility] [address]: Rosa JUAREZ REQ: [id number] RECD: 11/11/14-1234 STATUS: COMP OTHR DR: Yo Pickard SHIP'S CAPTAIN _ SOURCE: URINE SPDESC: ORDERED: Urine Culture QUERIES: Provider Requisition # [id number] Procedure Result Verified Site Urine Culture Final 11/13/14- 1125 ML Organism 1 NORMAL NANCY [place] Count 1-10,000 (Few) CFU/ML * ML - [facility] ([facility]) . Arnel Do M.D. END OF REPORT * ML=Testing performed at Main Lab DEPARTMENT OF PATHOLOGY, [facility] [employer] [place], [place] [address] Arnel Mon M.D. Director [facility] # [id number] 10 Normal Range 180 to 914 4 Indeterminate Range 145 to 180 Deficient Range <145 10 Because ethnic data is not always readily available, 5 this report includes an eGFR for both -Americans and non- Americans. The National Kidney Disease Education Program (NKDEP) does not endorse the use of the MDRD equation for patients that are not between the ages of 18 and 70, are , have extremes of body size, muscle mass, or nutritional status, or are non- or non-. According to the National Kidney Foundation, irrespective of diagnosis, the stage of the disease is based on the level of kidney function: Stage Description GFR(mL/min/1.73 m(2)) 1 Kidney damage with normal or decreased GFR 90 2 Kidney damage with mild decrease in GFR 60-89 3 Moderate decrease in GFR 30-59 4 Severe decrease in GFR 15-29 5 Kidney failure <15 (or dialysis) 10 RUN DATE: 05/17/14 [facility] LAB LIVE PAGE 1 6 RUN TIME: 1218 [facility] [address], [place] [address] Specimen Inquiry Name: SILVIANO SHARP : [address]: Joselyn Pickard NP Acct: [id number] Unit: [id number] AGE: 33 Location: [facility] Re05/15/14 SEX: F Status: REG REF SPEC: [id number] JIMMIE: 05/15/14-[address]: Joselyn Pickard NP REQ: [id number] RECD: 05/15/14-1813 STATUS: COMP _ SOURCE: URINE SPDESC: ORDERED: Urine Culture QUERIES: Medent Number [id number] Procedure Result Verified Site Urine Culture Final 05/17/14- 1217 ML Organism 1 NORMAL NANCY [place] Count 1-10,000 (Few) CFU/ML END OF REPORT * ML=Testing performed at Main Lab DEPARTMENT OF PATHOLOGY, [address] [place] [address] Arnel Mon M.D. Director [facility] # [id number] 10 Comment: s 7 10 Comment: s 8 10 Reference Range and Interpretation: 9 TnI (ng/mL) Interpretation Less Than 0.03 ng/mL Not supportive of diagnosis of NE 0.03 - 0.50 ng/mL Indeterminate: suggest serial studies if clinically indicated. Greater than 0.5 ng/mL Consistent with diagnosis of NE 11 Therapeutic concentration: <50 ug/mL 0 Toxic concentration: >120 ug/mL 11 Comment: s 1 11 Comment: s 2 11 Because ethnic data is not always readily available, 3 this report includes an eGFR for both -Americans and non- Americans. The National Kidney Disease Education Program (NKDEP) does not endorse the use of the MDRD equation for patients that are not between the ages of 18 and 70, are , have extremes of body size, muscle mass, or nutritional status, or are non- or non-. According to the National Kidney Foundation, irrespective of diagnosis, the stage of the disease is based on the level of kidney function: Stage Description GFR(mL/min/1.73 m(2)) 1 Kidney damage with normal or decreased GFR 90 2 Kidney damage with mild decrease in GFR 60-89 3 Moderate decrease in GFR 30-59 4 Severe decrease in GFR 15-29 5 Kidney failure <15 (or dialysis) 11 Please note: 4 The following may produce a false positive D Dimer test: - Rheumatoid factor greater than 60 IU/ml - Plasma hemoglobin greater than 0.05 gm/dl - Bilirubin greater than 50 mg/dl - Lipids greater than 1000 mg/dl - FDP greater than 20 ug/ml 11 This test detects intact HCG only and is indicated for the 5 early detection of . 11 Comment: d 6 11 The urine specimen was tested at the listed cutoffs: 7 Drug class test level (ng/ml) Amphetamines 300 Barbituates 200 Benzodiazepine metabolites 200 Cocaine metabolites 300 Cannabinoids 25 Opiates 200 Pcp 25 This is a screening procedure. Positive results are not confirmed. Specimen was received without chain of custody. Results should be used for medical purposes only. 11 RUN DATE: 08/07/13 [facility] LAB LIVE PAGE 1 8 RUN TIME: [address] [place] [address] Specimen Inquiry Name: SILVIANO SHARP : [address]: Sugey Christy MD Acct: [id number] Unit: [id number] AGE: 32 Location: [facility] Re08/06/13 SEX: F Status: REG REF SPEC: [id number] JIMMIE: 08/06/[address] [facility] [address]: Sugey Christy MD REQ: [id number] RECD: 08/06/13 STATUS: SOUT _ ORDERED: IMAGE ANALYSIS, PAP SM PATH REV, HPV/Thin Prep FINAL DIAGNOSIS Negative for Intraepithelial lesion or Malignancy Reactive cellular changes associated with Inflammation (includes typical repair) COMMENTS: Specimen sent to [facility] in [place], [place] on 08/07/13 by [id number] at 1327. Results will be reported separately. A. Ectocervical/Endocervical Specimen Adequacy: Satisfactory of evaluation Transformation zone component identified Predominance of white blood cells Patient Information: HPV: High risk HPV DNA testing regardless of pap results. Actual Specimen Date: 08/06/13 Last Menstrual Date: 11/27/12 Signed (signature on file) Oriana Tamayo MD 06/10 1536 This Pap test was evaluated with the assistance of the ThinPrep Test Imaging System. Due to cytologic findings at the label cutter microscope, comprehensive manual rescreening by a Labor Gang Supervisor may be required. The Pap Smear is a screening test designed to aid in the detection of premalignant and malignant conditions of the uterine cervix. It is not a diagnostic procedure and should not be used as the sole means of detecting cervical cancer. Both false- positive and false- negative reports do occur. Depending on your risk status, a Pap smear shoudl be obtained and evaluated every 1-3 years. END OF REPORT * ML=Testing performed at Main Lab DEPARTMENT OF PATHOLOGY, [facility] [employer] [place], [place] [address] Arnel Mon M.D. Director [facility] Permit #[id number] 11 RUN DATE: 08/07/13 [facility] LAB LIVE PAGE 1 9 RUN TIME: 2365 [facility] [place], [place] [address] Specimen Inquiry Name: SILVIANO SHARP : [address]: Sugey Christy MD Acct: [id number] Unit: [id number] AGE: 32 Location: [facility] Re08/06/13 SEX: F Status: REG REF SPEC: [id number] JIMMIE: 08/06/[address]: Sugey Christy MD REQ: [id number] RECD: 08/06/13 STATUS: COMP _ SOURCE: [facility]: ORDERED: GC/Chlam RNA QUERIES: Medent Number [id number] Procedure Result Verified Site Chlamydia Trachomatis RNA Final 08/07/13- 1422 ML NEGATIVE for Chlamydia trachomatis rRNA GC (N. gonorrhoeae) RNA Final 08/07/13- 1426 ML NEGATIVE for Neisseria gonorrhoeae rRNA A negative result does not preclude the presence of a C. trachomatis or N. gonorrhoeae infection because results are dependent on adequate specimen collection, absence of inhibitors, and sufficient rRNA to be detected. Test results may be affected by improper specimen collection, improper storage, technical error, or specimen mixup. Limitations of the Procedure: The Aptima Combo 2 Assay is not intended for the evaluation of suspected sexual abuse or for other medico-legal indications. For those patients for whom a false positive result may have adverse psychosocial impact, the [facility] recommends retesting by a method using an alternate technology. Therapeutic failure or success cannot be determined with the Aptima Combo 2 Assay since nucleic acid may persist following appropriate antimicrobial therapy. Results from the Aptima Combo 2 Assay should be interpreted in conjunction with other laboratory and clinical data available to the clinican. CONTINUED ON NEXT PAGE * ML=Testing performed at Main Lab DEPARTMENT OF PATHOLOGY, [facility] [employer] [place] [address] Arnel Mon M.D. Director [facility] Permit #[id number] RUN DATE: 08/07/13 [facility] LAB LIVE PAGE 2 RUN TIME: 5245 [facility] [place], [place] [address] Specimen Inquiry Patient: LILASILVIANO [id number] (Continued) Specimen: [id number] Collected: 08/06/13 Received: 08/06/13-121 (Continued) Procedure Result Verified Site GC (N. gonorrhoeae) RNA Final (continued) 08/07/13- 1426 Performance characteristics for detecting C. trachomatis and N. gonorrhoeae are derived from high prevalence populations. Positive results in low prevalence populations should be interpreted carefully with the understanding that the likelihood of a false positive may be higher than a true positive. END OF REPORT * ML=Testing performed at Main Lab DEPARTMENT OF PATHOLOGY, [facility] [employer] [place], [place] [address] Arnel Mon M.D. Director [facility] Permit #[id number] 12 RUN DATE: 08/07/13 [facility] LAB LIVE PAGE 1 0 RUN TIME: [address] [place] [address] Specimen Inquiry Name: SILVIANO SHARP : [address]: Sugey Christy MD Acct: [id number] Unit: [id number] AGE: 32 Location: [facility] Re08/06/13 SEX: F Status: REG REF SPEC: [id number] JIMMIE: 08/06/[address]: Sugey Christy MD REQ: [id number] RECD: 08/06/13 STATUS: COMP _ SOURCE: VAGINAL SPDESC: ORDERED: Affirm QUERIES: Medent Number [id number] Procedure Result Verified Site Affirm Vaginal DNA Probe Final 08/07/13- 1200 ML Organism 1 Negative Trichomonas Organism 2 Negative Gardnerella Organism 3 Negative Lashell The presence of G. vaginalis, although suggestive, is not diagnostic for bacterial vaginosis. Results should be interpreted in conjunction with other clinical and laboratory data available. Women with vaginal discharge should be evaluated for risk factors of cervicitis and pelvic inflammatory disease, toxic shock syndrome (S.aureus), and if present, evaluated for organisms not included in this assay such as N. gonorrhoeae, C. trachomatis, Mobiluncus, Mycoplasma and/or Prevotella. Mixed infections may occur. The performance of this test on patient specimens collected during or immediately after antimicrobial therapy is unknown. The presence or absence of Lashell species, G. vaginalis or T. vaginalis cannot be used as a test for therapeutic success or failure. END OF REPORT * ML=Testing performed at Main Lab DEPARTMENT OF PATHOLOGY, [address] [place] [address] Arnel Mon M.D. Director [facility] Permit #[id number] 12 RESULT: Ectocervical/Endocervical 1 12 For types 16, 18, 31, 33, 35, 39, 45, 51, 52, 56, 58, 59 2 and 68. Test Performed by: [address] [address] [employer] Machine Tender: Shyam London III, M.D. 12 The performance of this assay has not been established 3 for use in neonates, infants or on cord blood. Test Performed by: [address] [address] [employer] Tender: Shyam London III, M.D. 12 Test Performed by: [address] [address] [employer] Tender: Shyam London III, M.D. 12 RUN DATE: 05/19/13 [facility] LAB LIVE PAGE 1 5 RUN TIME: [address] [place] [address] Specimen Inquiry Name: SILVIANO SHARP : [address]: Sugey Christy MD Acct: [id number] Unit: [id number] AGE: 32 Location: [facility] Re05/18/13 SEX: F Status: REG REF SPEC: [id number] JIMMIE: 05/18/[address] [facility] [address]: Sugey Christy MD REQ: [id number] RECD: 05/18/13 STATUS: RES _ SOURCE: STOOL SPDESC: ORDERED: Hemoccult, Stool Culture, Fecal Lactoferr, C. diff Amp DNA, O P: Justin/Volodymyr QUERIES: Medent Number [id number] Procedure Result Verified Site Stool Culture PENDING Stool Specimen Description Final 05/18/13- 1156 ML Stool Color Brown Stool Form Semi-formed Stool Consistency Soft Shiga Toxin 1 2 PENDING C. difficile Amplified DNA Final 05/18/13- 1352 ML Organism 1 Neg: No C. difficile detected Assay tests for toxigenic C. difficile with Pathogen Locus (PALOC) TEST LIMITATIONS: Assay does not distinguish between viable and nonviable organisms. Test results are to be used in conjunction with information available from the patient clinical evaluation and other diagnostic procedures. Two distinct groups have been identified that can harbor C. difficile asymptomatically at very high rates. Colonization at rates up to 50% and higher have been reported in infants and rates up to 32% in cystic fibrosis patients. CONTINUED ON NEXT PAGE * ML=Testing performed at Main Lab DEPARTMENT OF PATHOLOGY, [facility] [employer] [place] [address] Arnel Mno M.D. Director [facility] Permit #[id number] RUN DATE: 05/19/13 [facility] LAB LIVE PAGE 2 RUN TIME: [address] [place] [address] Specimen Inquiry Patient: SILVIANO SHARP [id number] (Continued) Specimen: [id number] Collected: 05/18/13 Received: 05/18/13-100 (Continued) Procedure Result Verified Site C. difficile Amplified DNA Final (continued) 05/18/13- 1352 Fecal Lactoferrin (Stool WBC) Final 05/18/13- 1315 ML Fecal Lactoferrin Negative by Immunoassay TEST LIMITATIONS: Assay detects elevated levels of lactoferrin released from fecal leukocytes as a marker of intestinal inflammation. The test may not be appropriate in immunocompromised persons. Fecal samples from breast fed infants should not be used with this assay. Stool Occult Blood Final 05/19/13- 0752 ML Stool Occult Blood Negative O P: Giardia/Cryptospor Screen PENDING END OF REPORT * ML=Testing performed at Main Lab DEPARTMENT OF PATHOLOGY, [address] [place] [address] Arnel Mon M.D. Director [facility] Permit #[id number] 12 RUN DATE: 05/21/13 [facility] LAB LIVE PAGE 1 6 RUN TIME: [address] [place] [address] Specimen Inquiry Name: SILVIANO SHARP : [address]: Sugey Christy MD Acct: [id number] Unit: [id number] AGE: 32 Location: [facility] Re05/18/13 SEX: F Status: REG REF SPEC: [id number] JIMMIE: 05/18/[address] [facility] [address]: Sugey Christy MD REQ: [id number] RECD: 05/18/13 STATUS: COMP _ SOURCE: STOOL SPDESC: ORDERED: Hemoccult, Stool Culture, Fecal Lactoferr, C. diff Amp DNA, O P: Justin/Volodymyr QUERIES: Medent Number [id number] Procedure Result Verified Site Stool Culture Final 05/21/13- 1016 ML Result No enteric pathogens isolated Testing for Salmonella, Shigella, Aeromonas, Plesiomonas, Yersinia and Campylobacter are included in a Stool Culture. Vibrio spp not routinely tested for in a stool culture. If testing is desired, please request specifically when placing test order. Sensitivities not routinely performed on stool isolates, as antibiotics may prolong the carriage rate of bacteria. Please contact the microbiology lab if sensitivities are required. Stool Specimen Description Final 05/18/13- 1156 ML Stool Color Brown Stool Form Semi-formed Stool Consistency Soft Shiga Toxin 1 2 Final 05/21/13- 1231 ML Organism 1 Negative Shiga Toxin 1 2 Immunochromatographic Assay CONTINUED ON NEXT PAGE * ML=Testing performed at Main Lab DEPARTMENT OF PATHOLOGY, [facility] [employer] [place] [address] Arnel Mon M.D. Director [facility] Permit #[id number] RUN DATE: 05/21/13 [facility] LAB LIVE PAGE 2 RUN TIME: 1358 [facility] [place], [place] [address] Specimen Inquiry Patient: SILVIANO SHARP [id number] (Continued) Specimen: [id number] Collected: 05/18/13-829 Received: 05/18/13-1008 (Continued) Procedure Result Verified Site Shiga Toxin 1 2 Final (continued) 05/21/13- 1231 C. difficile Amplified DNA Final 05/18/13- 1352 ML Organism 1 Neg: No C. difficile detected Assay tests for toxigenic C. difficile with Pathogen Locus (PALOC) TEST LIMITATIONS: Assay does not distinguish between viable and nonviable organisms. Test results are to be used in conjunction with information available from the patient clinical evaluation and other diagnostic procedures. Two distinct groups have been identified that can harbor C. difficile asymptomatically at very high rates. Colonization at rates up to 50% and higher have been reported in infants and rates up to 32% in cystic fibrosis patients. Fecal Lactoferrin (Stool WBC) Final 05/18/13- 1315 ML Fecal Lactoferrin Negative by Immunoassay TEST LIMITATIONS: Assay detects elevated levels of lactoferrin released from fecal leukocytes as a marker of intestinal inflammation. The test may not be appropriate in immunocompromised persons. Fecal samples from breast fed infants should not be used with this assay. Stool Occult Blood Final 05/19/13- 0752 ML Stool Occult Blood Negative O P: Giardia/Cryptospor Screen Final 05/21/13- 1358 ML Organism 1 Negative Cryptosporidium Organism 2 Negative Giardia CONTINUED ON NEXT PAGE * ML=Testing performed at Main Lab DEPARTMENT OF PATHOLOGY, [facility] [employer] [place], [place] [address] Arnel Mon M.D. Director [facility] Permit #[id number] RUN DATE: 05/21/13 [facility] LAB LIVE PAGE 3 RUN TIME: [address] [place] [address] Specimen Inquiry Patient: SILVIANO SHARP [id number] (Continued) Specimen: [id number] Collected: 05/18/13 Received: 05/18/13-1007 (Continued) Procedure Result Verified Site O P: Giardia/Cryptospor Screen Final (continued) 05/21/13- 1358 Giardia and cryptosporidium antigen testing performed by enzyme immunoassay. If patient is immunocompromised or has traveled to or is from a developing country, a full ova and parasite exam with microscopic (OPMIC) is recommended. All samples will be held one month in case full ova and parasite testing is requested. Contact the Microbiology Department at [phone]. TEST LIMITATIONS: As with all diagnostic procedures, the results obtained should be used in conjunction with other clinical information available the physician. Negative results can occur in samples containing antigen below lower limits of detection of the assay. The use of colonic washes, aspirates or other diluted sample types has not been established and could affect the performance of the assay. Stool samples contaminated with an oily or particulate base (eg. Barium, mineral oil etc.) could interfere with the test and are not recommended. END OF REPORT * ML=Testing performed at Main Lab DEPARTMENT OF PATHOLOGY, [facility] [employer] [place], [place] [address] Arnel Mon M.D. Director [facility] Permit #[id number] 12 RUN DATE: 05/21/13 [facility] LAB LIVE PAGE 1 7 RUN TIME: 1232 [facility] [place], [place] [address] Specimen Inquiry Name: SILVIANO SHARP : [address]: Sugey Christy MD Acct: [id number] Unit: [id number] AGE: 32 Location: [facility] Re05/18/13 SEX: F Status: REG REF SPEC: [id number] JIMMIE: 05/18/[address] [facility] [address]: Sugey Christy MD REQ: [id number] RECD: 05/18/13 STATUS: RES _ SOURCE: STOOL SPDESC: ORDERED: Hemoccult, Stool Culture, Fecal Lactoferr, C. diff Amp DNA, O P: Justin/Volodymyr QUERIES: Medent Number [id number] Procedure Result Verified Site Stool Culture Final 05/21/13- 1016 ML Result No enteric pathogens isolated Testing for Salmonella, Shigella, Aeromonas, Plesiomonas, Yersinia and Campylobacter are included in a Stool Culture. Vibrio spp not routinely tested for in a stool culture. If testing is desired, please request specifically when placing test order. Sensitivities not routinely performed on stool isolates, as antibiotics may prolong the carriage rate of bacteria. Please contact the microbiology lab if sensitivities are required. Stool Specimen Description Final 05/18/13- 1156 ML Stool Color Brown Stool Form Semi-formed Stool Consistency Soft Shiga Toxin 1 2 Final 05/21/13- 1231 ML Organism 1 Negative Shiga Toxin 1 2 Immunochromatographic Assay CONTINUED ON NEXT PAGE * ML=Testing performed at Main Lab DEPARTMENT OF PATHOLOGY, [facility] [employer] [place], [place] [address] Arnel Mon M.D. Director [facility] Permit #[id number] RUN DATE: 05/21/13 [facility] LAB LIVE PAGE 2 RUN TIME: 1232 [facility] [address], [place] [address] Specimen Inquiry Patient: SILVIANO SHARP [id number] (Continued) Specimen: [id number] Collected: 05/18/13 Received: 05/18/131008 (Continued) Procedure Result Verified Site Shiga Toxin 1 2 Final (continued) 05/21/13- 1231 C. difficile Amplified DNA Final 05/18/13- 1352 ML Organism 1 Neg: No C. difficile detected Assay tests for toxigenic C. difficile with Pathogen Locus (PALOC) TEST LIMITATIONS: Assay does not distinguish between viable and nonviable organisms. Test results are to be used in conjunction with information available from the patient clinical evaluation and other diagnostic procedures. Two distinct groups have been identified that can harbor C. difficile asymptomatically at very high rates. Colonization at rates up to 50% and higher have been reported in infants and rates up to 32% in cystic fibrosis patients. Fecal Lactoferrin (Stool WBC) Final 05/18/13- 1315 ML Fecal Lactoferrin Negative by Immunoassay TEST LIMITATIONS: Assay detects elevated levels of lactoferrin released from fecal leukocytes as a marker of intestinal inflammation. The test may not be appropriate in immunocompromised persons. Fecal samples from breast fed infants should not be used with this assay. Stool Occult Blood Final 05/19/13- 0752 ML Stool Occult Blood Negative O P: Giardia/Cryptospor Screen PENDING END OF REPORT * ML=Testing performed at Main Lab DEPARTMENT OF PATHOLOGY, [address] [place] [address] Arnel Mon M.D. Director [facility] Permit #[id number] 12 RUN DATE: 05/18/13 [facility] LAB LIVE PAGE 1 8 RUN TIME: [address] [place] [address] Specimen Inquiry Name: SILVIANO SHARP : [address]: Sugey Christy MD Acct: [id number] Unit: [id number] AGE: 32 Location: [facility] Re05/18/13 SEX: F Status: REG REF SPEC: [id number] JIMMIE: 05/18/[address] [facility] [address]: Sugey Christy MD REQ: [id number] RECD: 05/18/13 STATUS: RES _ SOURCE: STOOL SPDESC: ORDERED: Hemoccult, Stool Culture, Fecal Lactoferr, C. diff Amp DNA, O P: Justin/Volodymyr QUERIES: Medent Number [id number] Procedure Result Verified Site Stool Culture PENDING Stool Specimen Description Final 05/18/13- 1156 ML Stool Color Brown Stool Form Semi-formed Stool Consistency Soft Shiga Toxin 1 2 PENDING C. difficile Amplified DNA Final 05/18/13- 1352 ML Organism 1 Neg: No C. difficile detected Assay tests for toxigenic C. difficile with Pathogen Locus (PALOC) TEST LIMITATIONS: Assay does not distinguish between viable and nonviable organisms. Test results are to be used in conjunction with information available from the patient clinical evaluation and other diagnostic procedures. Two distinct groups have been identified that can harbor C. difficile asymptomatically at very high rates. Colonization at rates up to 50% and higher have been reported in infants and rates up to 32% in cystic fibrosis patients. CONTINUED ON NEXT PAGE * ML=Testing performed at Main Lab DEPARTMENT OF PATHOLOGY, [facility] [employer] [place], [place] [address] Arnel Mon M.D. Director [facility] Permit #[id number] RUN DATE: 05/18/13 [facility] LAB LIVE PAGE 2 RUN TIME: 6132 [facility] [place], [place] [address] Specimen Inquiry Patient: SILVIANO SHARP [id number] (Continued) Specimen: [id number] Collected: 05/18/13 Received: 05/18/13-1007 (Continued) Procedure Result Verified Site C. difficile Amplified DNA Final (continued) 05/18/13- 1352 Fecal Lactoferrin (Stool WBC) Final 05/18/13- 1315 ML Fecal Lactoferrin Negative by Immunoassay TEST LIMITATIONS: Assay detects elevated levels of lactoferrin released from fecal leukocytes as a marker of intestinal inflammation. The test may not be appropriate in immunocompromised persons. Fecal samples from breast fed infants should not be used with this assay. Stool Occult Blood PENDING O P: Giardia/Cryptospor Screen PENDING END OF REPORT * ML=Testing performed at Main Lab DEPARTMENT OF PATHOLOGY, [facility] [employer] [place], [place] [address] Arnel Mon M.D. Director [facility] Permit #[id number] 12 RUN DATE: 05/18/13 [facility] LAB LIVE PAGE 1 9 RUN TIME: 1315 [facility] [address], [place] [address] Specimen Inquiry Name: SILVIANO SHARP : [address]: Sugey Christy MD Acct: [id number] Unit: [id number] AGE: 32 Location: [facility] Re05/18/13 SEX: F Status: REG REF SPEC: [id number] JIMMIE: 05/18/[address] [facility] [address]: Sugey Christy MD REQ: [id number] RECD: 05/18/13 STATUS: RES _ SOURCE: STOOL SPDESC: ORDERED: Hemoccult, Stool Culture, Fecal Lactoferr, C. diff Amp DNA, O P: Justin/Volodymyr QUERIES: Medent Number [id number] Procedure Result Verified Site Stool Culture PENDING Stool Specimen Description Final 05/18/13- 1156 ML Stool Color Brown Stool Form Semi-formed Stool Consistency Soft Shiga Toxin 1 2 PENDING C. difficile Amplified DNA PENDING Fecal Lactoferrin (Stool WBC) Final 05/18/13- 1315 ML Fecal Lactoferrin Negative by Immunoassay TEST LIMITATIONS: Assay detects elevated levels of lactoferrin released from fecal leukocytes as a marker of intestinal inflammation. The test may not be appropriate in immunocompromised persons. Fecal samples from breast fed infants should not be used with this assay. Stool Occult Blood PENDING O P: Giardia/Cryptospor Screen PENDING END OF REPORT * ML=Testing performed at Main Lab DEPARTMENT OF PATHOLOGY, [facility] [employer] [place], [place] [address] Arnel Mon M.D. Director [facility] Permit #[id number] 13 RUN DATE: 05/19/13 [facility] LAB LIVE PAGE 1 0 RUN TIME: 1022 [facility] [place], [place] [address] Specimen Inquiry Name: SILVIANO SHARP : [address]: Sugey Christy MD Acct: [id number] Unit: [id number] AGE: 32 Location: [facility] Re05/17/13 SEX: F Status: REG REF SPEC: [id number] JIMMIE: 05/17/13-[address]: Sugey Christy MD REQ: [id number] RECD: 05/17/13 STATUS: COMP _ SOURCE: URINE SPDESC: ORDERED: Urine Culture QUERIES: Medent Number [id number] Procedure Result Verified Site Urine Culture Final 05/19/13- 1022 ML Organism 1 NORMAL NANCY [place] Count 1-10,000 (Few) CFU/ML END OF REPORT * ML=Testing performed at Main Lab DEPARTMENT OF PATHOLOGY, [facility] [employer] [place], [place] [address] Arnel Mon M.D. Director [facility] Permit #[id number] 13 Because ethnic data is not always readily available, 1 this report includes an eGFR for both -Americans and non- Americans. The National Kidney Disease Education Program (NKDEP) does not endorse the use of the MDRD equation for patients that are not between the ages of 18 and 70, are , have extremes of body size, muscle mass, or nutritional status, or are non- or non-. According to the National Kidney Foundation, irrespective of diagnosis, the stage of the disease is based on the level of kidney function: Stage Description GFR(mL/min/1.73 m(2)) 1 Kidney damage with normal or decreased GFR 90 2 Kidney damage with mild decrease in GFR 60-89 3 Moderate decrease in GFR 30-59 4 Severe decrease in GFR 15-29 5 Kidney failure <15 (or dialysis) 13 RUN DATE: 01/04/13 [facility] LAB LIVE PAGE 1 2 RUN TIME: 1103 [facility] [place], [place] [address] Specimen Inquiry Name: SILVIANO SHARP : [address]: Mp Bryant MD Acct: [id number] Unit: [id number] AGE: 32 Location: [facility] Re01/02/13 SEX: F Status: DEP ER SPEC: [id number] JIMMIE: 01/02/[address]: Mp Bryant MD REQ: [id number] RECD: 01/02/13 STATUS: DUANE ALEJANDRE DR: Sugey Christy MD _ SOURCE: URINE SPDESC: ORDERED: Urine Culture Procedure Result Verified Site Urine Culture Final 01/04/13- 1103 ML No Growth Day 2 (<1,000 CFU/mL) END OF REPORT * ML=Testing performed at Main Lab DEPARTMENT OF PATHOLOGY, [facility] [employer] [place], [place] [address] Arnel Mon M.D. Director [facility] Permit #[id number] 13 RUN DATE: 01/02/13 [facility] LAB LIVE PAGE 1 3 RUN TIME: 1445 [facility] [place], [place] [address] Specimen Inquiry Name: SILVIANO SHARP : [address]: Mp Bryant MD Acct: [id number] Unit: [id number] AGE: 32 Location: [facility] Re01/02/13 SEX: F Status: DEP ER SPEC: [id number] JIMMIE: 01/02/13-[address] [facility] [address]: Mp Bryant MD REQ: [id number] RECD: 01/02/13 STATUS: DUANE ALEJANDRE DR: Sugey Christy MD _ SOURCE: VAGINAL SPDESC: ORDERED: Affirm Procedure Result Verified Site Affirm Vaginal DNA Probe Final 01/02/13- 1444 ML Trichomonas Positive Gardnerella Negative Lashell Negative The presence of G. vaginalis, although suggestive, is not diagnostic for bacterial vaginosis. Results should be interpreted in conjunction with other clinical and laboratory data available. Women with vaginal discharge should be evaluated for risk factors of cervicitis and pelvic inflammatory disease, toxic shock syndrome (S.aureus), and if present, evaluated for organisms not included in this assay such as N. gonorrhoeae, C. trachomatis, Mobiluncus, Mycoplasma and/or Prevotella. Mixed infections may occur. The performance of this test on patient specimens collected during or immediately after antimicrobial therapy is unknown. The presence or absence of Lashell species, G. vaginalis or T. vaginalis cannot be used as a test for therapeutic success or failure. END OF REPORT * ML=Testing performed at Main Lab DEPARTMENT OF PATHOLOGY, [address] [place] [address] Arnel Mon M.D. Director [facility] Permit #[id number] 13 Test Performed by: 4 [facility] D[facility] of Lab Med and Pathology [address] [place] [address] [employer] Machine Tender: Shyam London III, M.D. Procedures Date CPT Code Description Status 11/28/2017 99120 Therapeutic,Prophylactic,Or Diagnostic Inj,SC/Im Completed Specify Drug 03/04/2017 73958 Therapeutic,Prophylactic,Or Diagnostic Inj,SC/Im Completed Specify Drug 11/01/2016 61624 Therapeutic,Prophylactic,Or Diagnostic Inj,SC/Im Completed Specify Drug 11/15/2014 80099 Therapeutic,Prophylactic,Or Diagnostic Inj,SC/Im Completed Specify Drug 01/22/2014 38548 Therapeutic,Prophylactic,Or Diagnostic Inj,SC/Im Completed Specify Drug 02/23/2013 43188 Therapeutic,Prophylactic,Or Diagnostic Inj,SC/Im Completed Specify Drug Encounters Type Date Location Provider CPT E/M Dx Office Visit 11/28/2017 3:30p Main Office SURINDER Rodriguez-C 69291 M25.562 G89.4 K64.9 E53.8 Office Visit 11/10/2017 3:45p Main Office Saranya Meehan HR PA[employer] COORDINATOR-C 50661 S46.811A G89.4 R53.83 Office Visit 10/21/2017 4:15p Main Office Saranya Meehan HR PA[employer]ROLL COORDINATOR-C 46518 G90.09 Office Visit 10/07/2017 2:30p Main Office Saranya Meehan HR PAYROLL COORDINATOR-C 88365 G90.09 G89.4 G47.00 Office Visit 09/26/2017 3:30p Main Office Saranya Meehan HR PAYROLL COORDINATOR-C 96173 G90.09 G89.4 Office Visit 09/12/2017 3:45p Main Office Saranya Meehan HR PAYROLL COORDINATOR-C 77607 G90.09 G89.4 Office Visit 08/11/2017 10:30a Main Office Saranya Meehan HR PAYROLL COORDINATOR-C 30969 J06.9 Office Visit 08/09/2017 3:00p Main Office Sathish Zaragoza III, HR PAYROLL COORDINATOR-C 67790 J06.9 Office Visit 07/11/2017 4:15p Main Office Saranya Meehan HR PAYROLL COORDINATOR-C 03862 G90.09 G89.4 N76.0 Office Visit 06/17/2017 2:30p Main Office Shawnti R. Zoran, HR PAYROLL COORDINATOR-C 15712 G89.4 Z72.0 Office Visit 05/13/2017 3:00p Main Office Shawnti R. Zoran, HR PAYROLL COORDINATOR-C 85273 G89.4 S96.211A Office Visit 04/14/2017 2:30p Main Office Shawnti R. Zoran, HR PAYROLL COORDINATOR-C 70035 G89.4 Office Visit 03/28/2017 10:45a Main Office Shawnti R. Zoran, HR PAYROLL COORDINATOR-C 48845 G89.4 Office Visit 03/04/2017 4:00p Main Office Shawnti R. Storm, HR PAYROLL COORDINATOR-C 55112 G89.4 D51.9 Z23 Office Visit 01/06/2017 4:30p Main Office Shawnti R. Zoran, HR PAYROLL COORDINATOR-C 89433 G89.4 H00.015 Office Visit 11/01/2016 4:30p Main Office Shawnti R. Zoran, HR PAYROLL COORDINATOR-C 63064 J18.9 G89.4 D51.9 F43.0 E53.8 Office Visit 10/01/2016 9:30a Main Office Shawnti R. Zoran, HR PAYROLL COORDINATOR-C 02411 J18.9 G89.4 Office Visit 09/10/2016 8:45a Main Office Shawnti R. Zoran, HR PAYROLL COORDINATOR-C 26339 N76.0 G89.4 Office Visit 08/26/2016 4:30p Main Office Shawnti R. Zoran, HR PAYROLL COORDINATOR-C 75106 G90.09 G89.4 Office Visit 08/16/2016 4:45p Main Office Shawnti R. Storm, HR PAYROLL COORDINATOR-C 36960 G90.09 Office Visit 07/12/2016 3:30p Main Office Shawnti R. Storm, HR PAYROLL COORDINATOR-C 87664 G90.09 Office Visit 06/15/2016 3:45p Main Office Shawnti R. Storm, HR PAYROLL COORDINATOR-C 52941 G90.09 J18.9 Office Visit 04/26/2016 4:00p Main Office Shawnti R. Storm, HR PAYROLL COORDINATOR-C 36344 G90.09 Office Visit 04/02/2016 3:00p Main Office Shawnti Jaydon Meehan, HR PAYROLL COORDINATOR-C 17498 G90.09 Office Visit 03/19/2016 8:45a Main Office Sathish Zaragoza III, HR PAYROLL COORDINATOR-C 92574 G90.09 Office Visit 02/23/2016 10:30a Main Office Shawnti Jaydon Meehan, HR PAYROLL COORDINATOR-C 70580 G47.00 R51 Office Visit 01/12/2016 10:15a Main Office Shawnti Randy. Zoran, HR PAYROLL COORDINATOR-C 90849 G90.09 Office Visit 01/05/2016 3:45p Main Office Shawnti R. Zoran, HR PAYROLL COORDINATOR-C 70482 G90.09 Z30.9 R30.0 Office Visit 12/23/2015 9:45a Main Office Shawnti Randy. Zoran, HR PAYROLL COORDINATOR-C 53979 G90.09 G47.00 M79.1 F43.9 Office Visit 11/28/2015 4:00p Main Office Ahsanwnti Jaydon Meehan, HR PAYROLL COORDINATOR-C 88140 G90.09 Office Visit 11/07/2015 2:45p Main Office Shawnti Randy. Zoran, HR PAYROLL COORDINATOR-C 45454 G90.09 M54.2 G47.00 Office Visit 10/24/2015 2:15p Main Office Shawnti R. Zoran, HR PAYROLL COORDINATOR-C 95462 M79.1 G90.09 Office Visit 10/10/2015 1:30p Main Office Ahsanwnti Jaydon Meehan, HR PAYROLL COORDINATOR-C 66127 Z00.00 Office Visit 09/09/2015 3:30p Main Office Shawnti R. Zoran, HR PAYROLL COORDINATOR-C 08587 G90.09 Office Visit 08/01/2015 11:30a Main Office Shawnti Randy. Zoran, HR PAYROLL COORDINATOR-C 60059 K70.40 D41.10 Office Visit 07/23/2015 9:45a Main Office Joselyn Pickard, HR PAYROLL COORDINATOR-C 86752 K72.91 Office Visit 04/04/2015 3:15p Main Office Shawnti Randy. Zoran, HR PAYROLL COORDINATOR-C 12922 308.3 Office Visit 01/07/2015 2:45p Main Office Shawnti R. Zoran, HR PAYROLL COORDINATOR-C 69232 303.90 Office Visit 11/15/2014 10:45a Main Office YUE Rodriguez 48862 303.90 616.10 281.1 266.2 Office Visit 05/15/2014 3:00p Main Office [place] 790[address] 789.9 599.0 Office Visit 01/22/2014 3:15p Main Office YUE Rodriguez 60806 303.90 266.2 Office Visit 08/06/2013 8:30a Main Office Sugey Christy M.D. 10831 V70.0 728.85 305.1 616.10 V04.81 Office Visit 06/28/2013 2:00p Main Office Sugey Christy M.D. 58718 728.85 Office Visit 06/04/2013 11:00a Main Office Sugey Christy M.D. 53228 V72.84 078.12 Office Visit 05/17/2013 3:30p Main Office Sugey Christy M.D. 56408 787.91 724.5 Office Visit 02/09/2013 2:45p Main Office Sugey Christy M.D. 35320 311 728.9 078.12 Office Visit 04/17/2012 11:45a Main Office [place] 16772 311 Office Visit 03/29/2012 11:45a Main Office [place] 29374 311 719.68 Office Visit 01/21/2012 11:30a Main Office Sugey Christy M.D. 99408 311 780.52 303.90 477.9 Office Visit 01/07/2012 9:00a Main Office Sugey Christy M.D. 08298 303.90 311 780.52 Plan of Care Future Appointment(s):02/06/2018 3:30 pm - YUE Rodriguez at Main Ysrtbt5001/06/2018 - SURINDER Rodriguez-CM54.5 Low back painNew Therapy: Physical Therapy-Evaluate And TreatComments:remains motivated to get off opiate pain medication. will refer to [facility] for assistance with this, interested in Naltrexone for pain management if needed once she is opiate free...will refer to pain clinic as well for non-opiate pain management. 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 they have a program to help people get off opiates.M25.559 Pain in unspecified hipComments:refer to PT for back and hip painD51.8 Other vitamin B12 deficiency anemiasComments:B12 injection today
--- NOTE | 2018-01-15 14:17 | UC ---
Oneida Valenzuela Emily, scribed for Kaitlynn Busby DO on 01/15/18 at 1307 . Throat Pain/Nasal Tomi HPI - HPI Summary HPI Summary: This patient is a 37 year old F presenting to [facility] care accompanied by son with a chief complaint of sore throat that began 2 days ago. Pt reports being able to swallow, but with extreme pain. The patient rates the pain 5/10 in severity. Symptoms aggravated by nothing. Symptoms alleviated by nothing. Patient reports nausea, SOB, ear ache, and chills. Patient denies CP and diaphoresis. Patient reports starting to use decongestant nose spray daily four months ago. - History of Current Complaint Chief Complaint: UCGeneralIllness Stated Complaint: THROAT PAIN Time Seen by Provider: 01/15/18 12:58 Hx Obtained From: Patient Hx Last Menstrual Period: bcp ?: No Onset/Duration: Sudden Onset, Lasting Days Severity: Moderate Pain Intensity: 5 Pain Scale Used: 0-10 Numeric - Allergies/Home Medications Allergies/Adverse Reactions: Allergies Allergy/AdvReac Type Severity Reaction Status Date / Time codeine Allergy Rash Verified 01/15/18 12:40 PMH/Surg Hx/FS Hx/Imm Hx Previously Healthy: No Cardiovascular History: Other Other Cardiovascular History: Murmur Psychological History: Anxiety - Surgical History Surgical History: None - Family History Known Family History: Negative: Cardiac Disease, Hypertension, Diabetes - Social History Occupation: Employed Full-time Lives: With Family Alcohol Use: None Alcohol Amount: SOBER SINCE JUN 2015, HX ALCOHOLISM Substance Use Type: None Substance Use Comment - Amount & Last Used: marijuana once a month Smoking Status (MU): Current Every Day Smoker Type: Cigarettes Amount Used/How Often: 1/2 PPD Length of Time of Smoking/Using Tobacco: 17 years Have You Smoked in the Last Year: Yes - Immunization History Most Recent Influenza Vaccination: doesn't get flu shots Review of Systems Constitutional: Chills Skin: Other - Negative diaphoresis ENT: Sore Throat, Ear Ache Respiratory: Shortness Of Breath Cardiovascular: Other - Negative CP Gastrointestinal: Nausea All Other Systems Reviewed And Are Negative: Yes Physical Exam - Summary Physical Exam Summary: Appearance: Well-Appearing, No Pain Distress, Well-Nourished Eyes: conjunctiva clear, no discharge ENT: Hearing grossly normal, no muffled/hoarse voice. TMs normal, tonsillar swelling, negative tonsillar exudate, negative trismus. Neck: Tender lymphadenopathy. No posterior lymphadenopathy. Respiratory/Lung Sounds: Lungs clear, Normal breath sounds, No respiratory distress, No accessory muscle use Cardiovascular: RRR, No murmur Abdomen: Nontender, Soft, no guarding, not distended Bowel Sounds: Present Musculoskeletal: Normal Neurological: Alert, muscle tone normal Psychiatric: Normal, age appropriate behavior Skin: Normal, Warm, Dry, Normal color Triage Information Reviewed: Yes Vital Signs: Initial Vital Signs Temp 96.5 F 01/15/18 12:36 Pulse 70 01/15/18 12:36 Resp 16 01/15/18 12:36 BP 106/63 01/15/18 12:36 Pulse Ox 100 01/15/18 12:36 Vital Signs Reviewed: Yes Throat Pain/Nasal Course/Dx - Course Assessment/Plan: Patient will be discharged with prescription for magic mouth wash and prednisone with follow up from PCP. The patient is agreeable with this plan. Medications reviewed. Allergies reviewed - Differential Dx/Diagnosis Provider Diagnoses: Pharyngitis Discharge - Sign-Out/Discharge Documenting (check all that apply): Discharge/Admit/Transfer - Discharge Plan Condition: Stable Disposition: HOME Prescriptions: Magic Mouth Was-ELY/MAAL/LIDO* 5 ml SWISH SPIT QID PRN #100 ml PRN Reason: Pain predniSONE TAB* [Deltasone TAB*] 40 mg PO DAILY #10 tab Patient Education Materials: Strep Throat (ED) Referrals: Saranya Meehan, TELEMETRY REGISTERED NURSE [Primary Care Provider] - If Needed Additional Instructions: TRY USING THE NETTI POT IN THE MORNINGS DISCUSSED. YOU MUST ALWAYS USE CLEAN WATER. REMEMBER, POSTURE IS AN IMPORTANT FACTOR IN SINUS DRAINAGE. MOVE YOUR NECK, BREATHE. WE HAVE DONE SOME LAB WORK TO TEST FOR MONO. YOU WILL BE CALLED WITH ABNORMAL RESULTS. DISCUSSED, TRY MAGIC MOUTHWASH TO CONTROL PAIN PRIOR TO EATING. - Billing Disposition and Condition Condition: STABLE Disposition: HOME The documentation as recorded by the Oneida gomez Emily accurately reflects the service I personally performed and the decisions made by me, Kaitlynn Busby DO.
== END 2018-01-15 13:53 | disposition home or self-care (01) ==
LOC: UCEAST 12:32
DX: J02.9 Acute pharyngitis, unspecified (principal); R11.0 Nausea; R06.02 Shortness of breath; H92.09 Otalgia, unspecified ear; R68.83 Chills (without fever); R01.1 Cardiac murmur, unspecified; F41.9 Anxiety disorder, unspecified; Z88.5 Allergy status to narcotic agent; F17.210 Nicotine dependence, cigarettes, uncomplicated
CPT/HCPCS: 36415; 86308; 87651; 99212; G0463